=== PATIENT | female | born 1980 | race Caucasian/White ===

== ENCOUNTER 2024-04-11 16:43 | Observation (INO) ==
--- NOTE | 2024-04-11 16:49 | Emergency Department Note ---
History of Present Illness General Chief complaint: Abdominal Pain Stated complaint: ?BOWEL OBSTRUCTION,ABD PAIN,NAUSEA,CONSTIPATION Time Seen by Provider: 04/11/24 16:48 History of Present Illness NAME: JERONIMO CUMMINGS AGE: 44 SEX: F : 1980 ARRIVES VIA: Walk-In INFORMANT: Patient ED PROVIDER(S): SEGUN Sanches, Ashley Aguilera MD The patient is a pleasant 44-year-old female who arrives to the emergency department for evaluation of right lower quadrant abdominal pain. She reports she went to [facility] earlier today because she was concerned for a UTI, however when she was evaluated the provider had concerns for appendicitis or possible bowel obstruction. She reports the pain began last night, and since then has worsened. She states the pain is severe when she is in the vehicle and goes over any type of a bump. She denies any fever, nausea, vomiting, urinary or bowel issues. Home Medications Medication Instructions Recorded Confirmed Type Lactobacillus rhamnosus GG 10 1 cap PO DAILY 04/11/24 04/11/24 History billion cell capsule (Culturelle) acetaminophen 500 mg tablet 1,000 mg PO Q6H PRN Pain 04/11/24 04/11/24 History (Tylenol Extra Strength) buspirone 5 mg tablet 5 mg PO BID 04/11/24 04/11/24 History buspirone 5 mg tablet 5 mg PO DAILY PRN Anxiety 04/11/24 04/11/24 History cetirizine 10 mg tablet (Zyrtec) 10 mg PO DAILY 04/11/24 04/11/24 History levothyroxine 50 mcg tablet 50 mcg PO DAILY 04/11/24 04/11/24 History lorazepam 0.5 mg tablet 0.5 mg PO DAILY PRN Anxiety 04/11/24 04/11/24 History multivitamin 1 tab PO DAILY 04/11/24 04/11/24 History Allergies Allergy/AdvReac Type Severity Reaction Status Date / Time acyclovir [From Zovirax] Allergy Rash Verified 04/11/24 19:23 Past Med/Surg History Medical History No pertinent past medical history Surgical History No pertinent past surgical history Social History Smoking Status: Never smoker Preferred Language: Luxembourgish Feels Safe at Home: Yes Physical Exam Vital Signs Vital Signs - 24 hr 04/11/24 16:44 04/11/24 16:44 04/11/24 17:04 Temperature 36.6 C Temperature Source Temporal Artery Scan Pulse Rate 82 79 Pulse Rate [Apical] Respiratory Rate 18 18 Blood Pressure 163/70 H Blood Pressure [Right Arm] Blood Pressure Mean 101 Blood Pressure Mean [Right Arm] Pulse Oximetry 98 Oxygen Delivery Method Sepsis Recent Fever Within 48 Hours No Sepsis New/Unexplained Change in Mental Status N/A Sepsis Action Taken by Nursing No Action Required 04/11/24 17:16 04/11/24 19:06 Temperature Temperature Source Pulse Rate Pulse Rate [Apical] 72 Respiratory Rate 19 Blood Pressure Blood Pressure [Right Arm] 159/82 H Blood Pressure Mean Blood Pressure Mean [Right Arm] 107 Pulse Oximetry 100 95 Oxygen Delivery Method Room Air Sepsis Recent Fever Within 48 Hours Sepsis New/Unexplained Change in Mental Status Sepsis Action Taken by Nursing VITALS: Vitals are noted on the nurse's note and reviewed by myself. Vital signs stable. GENERAL: 44-year-old female, in no acute distress, nondiaphoretic, well- developed well-nourished. SKIN: The skin was without rashes, erythema, edema, or bruising. HEAD: Normocephalic atraumatic. HEART: Regular rate and rhythm without murmurs gallops or rubs. LUNGS: Clear to auscultation bilaterally without wheezes, rales or rhonchi. No retractions or accessory muscle use. ABDOMEN: Positive bowel sounds x 4. Soft, tender to palpation left lower quadrant, and right lower quadrant. De Souza sign positive. No guarding, slight rebound tenderness. MUSCULOSKELETAL: No muscle atrophy, erythema, or edema noted. Normal gait. Strength 5/5 throughout. NEURO: Patient was alert and oriented to person place and time. No focal neurological deficits. Course Administered Medications Discontinued Medications Sodium Chloride (Nss) 1,000 mls @ 999 mls/hr IV .Q1H1M STA Stop: 04/11/24 18:01 Last Infusion: 04/11/24 19:04 Dose: Infused Documented By: Admin: 04/11/24 17:25 Dose: 999 mls/hr Documented By: JUAN CARLOS Cefoxitin Sodium (Mefoxin) 2,000 mg in 60 mls @ 100 mls/hr IV NOW STA Stop: 04/11/24 19:25 Last Admin: 04/11/24 19:07 Dose: 100 mls/hr Documented By: KATHY Ioversol (Optiray 320 100ml) 94 ml IV ONCE ONE Stop: 04/11/24 18:17 Last Admin: 04/11/24 18:17 Dose: 94 ml Documented By: FREDRICK Ketorolac Tromethamine (Ketorolac Tromethamine 15 Mg/Ml Vial) 10 mg IV NOW STA Stop: 04/11/24 17:02 Last Admin: 04/11/24 17:24 Dose: 10 mg Documented By: JUAN CARLOS Morphine Sulfate (Morphine Sulfate 4 Mg/Ml 1 Ml Carp\Vial) 4 mg IV NOW STA Stop: 04/11/24 17:02 Last Admin: 04/11/24 17:24 Dose: Not Given Documented By: JUAN CARLOS Ondansetron HCl (Ondansetron Inj 2 Mg/Ml 2 Ml Vial) 4 mg IV NOW STA Stop: 04/11/24 17:02 Last Admin: 04/11/24 17:23 Dose: 4 mg Documented By: JUAN CARLOS Medical Decision Making Differential Diagnosis Appendicitis, ovarian cyst, ovarian torsion, ectopic , TOA, PID, infections, diverticulitis, UTI, obstruction, mesenteric ischemia, aortic pathology, inflammatory bowel disease, renal colic, PUD, pancreatitis, biliary pathology, hernia, volvulus, constipation, as well as other pathologies. Medical Records Attestation: I reviewed the patient's medical records. Home Medications Current Medication List: was personally reviewed by me Laboratory Data Attestation: I reviewed the patient's lab results. Leukocytosis 16.86, stable hemoglobin and hematocrit, no electrolyte abnormalities, urinalysis negative for infection. 04/11/24 17:14 04/11/24 17:14 Lab Results 04/11/24 04/11/24 Range/Units 17:14 Unknown WBC 16.86 H (4.8-10.8) K/ul RBC 4.74 (4.20-5.40) M/uL Hgb 14.5 (12.0-16.0) g/dl Hct 42.9 (37.0-47.0) % MCV 90.5 (80.0-100.0) fL MCH 30.6 (25.0-34.0) pg MCHC 33.8 (32.0-36.0) g/dL RDW Std Deviation 41.5 (36.4-46.3) fL RDW Coeff of Dina 12.4 (11.5-14.5) % Plt Count 363 (130-400) K/uL MPV 9.1 L (9.4-12.4) fL Immature Gran % (Auto) 0.4 % Neut % (Auto) 75.4 % Lymph % (Auto) 16.5 % Garrard % (Auto) 6.9 % Eos % (Auto) 0.4 % Baso % (Auto) 0.4 % Neut # (Auto) 12.70 H (1.40-6.50) K/uL Lymph # (Auto) 2.79 (1.20-3.40) K/uL [place]ard # (Auto) 1.17 H (0.11-0.59) K/uL Eos # (Auto) 0.06 (0.00-0.50) K/uL Baso # (Auto) 0.07 (0.00-0.20) K/uL Immature Gran # (Auto) 0.07 (0.01-0.20) K/uL Sodium 138 (136-145) mmol/L Potassium 3.5 (3.5-5.1) mmol/L Chloride 102 (98-107) mmol/L Carbon Dioxide 27 (21-32) mmol/L Anion Gap 9 (3-11) BUN 8 (6-23) mg/dl Creatinine 0.68 (0.6-1.2) mg/dl Est Cr Clr Drug Dosing 104.5 ml/min Est GFR ( Amer) 123.3 ml/min Est GFR (Non-Af Amer) 106.4 ml/min BUN/Creatinine Ratio 11.8 (10-20) Glucose 97 (70-99(Fasting)) mg/dl Lactate 1.1 (0.4-2.0) mmol/L Calcium 9.8 (8.6-10.3) mg/dl Total Bilirubin 1.0 (0.2-1.0) mg/dl AST 13 (13-39) U/L ALT 12 (7-52) U/L Alkaline Phosphatase 55 (34-104) U/L Total Protein 8.3 (6.0-8.3) gm/dl Albumin 4.9 (3.4-5.0) gm/dl Globulin 3.4 (2.5-4.0) gm/dl Albumin/Globulin Ratio 1.4 (0.9-2) Lipase 32 (11-82) U/L HCG, Qual Negative (Negative) Urine Color Yellow Urine Appearance Clear (Clear) Urine pH 6.5 (4.5-7.5) Ur Specific [place] 1.014 (1.000-1.030) Urine Protein Negative (Negative) Urine Glucose (UA) Negative (Negative) Urine Ketones Trace H (Negative) Urine Blood Negative (Negative) Urine Nitrite Negative (Negative) Urine Bilirubin Negative (Negative) Urine Urobilinogen Negative (Negative) Ur Leukocyte Esterase Negative (Negative) Imaging Data Radiologist's Impression: Abdomen/Pelvis CT 04/11/24 17:01 CT abd pelvis IV con only CLINICAL HISTORY: RLQ TTP TECHNIQUE: Helical axial images of the abdomen and pelvis were obtained and displayed. Automated dose lowering techniques and/or adjustment according to patient size were utilized for this exam. This exam was performed with intravenous contrast. CT DOSE: 1261.44 mGy.cm COMPARISON: None available at the time of this dictation. FINDINGS: Lower chest: No acute abnormality. Liver: Unremarkable. No focal lesions are seen. Gallbladder and biliary tree: No calcified gallstones. Normal caliber wall. No intra- or extrahepatic biliary ductal dilation. Pancreas: Unremarkable, no focal lesions. Spleen: Unremarkable. Adrenals: Unremarkable. Kidneys and ureters: Unremarkable. Bladder: Unremarkable. Reproductive organs: Uterus is not seen. There is a right ovary. Bowel: The appendix is dilated measuring 9 mm in diameter. No appendicolith is seen. Soft tissue stranding is seen about the appendix. Lymph nodes Retroperitoneal: Unremarkable. Pelvic: Unremarkable. Mesenteric: Unremarkable. Peritoneum: Fat stranding is seen in the right lower quadrant about the appendix. No fluid collection or intraperitoneal gas. Vessels: Unremarkable. Abdominal wall: A fat-containing umbilical hernia is seen. Bones: Unremarkable. IMPRESSION: Findings are compatible with acute appendicitis without abscess or perforation. ACT 112: Negative or not required by law. Electronically signed by: Roberto Gillis M.D. 04/11/2024 6:36 PM Blood Pressure Blood Pressure Findings: Elevated blood pressure Blood Pressure Disposition: elevated BP felt to be situational MDM Narrative The patient is a 44-year-old female who arrives to the emergency department for the above-stated complaint. Upon examination the patient does have significant tenderness to palpation of the lower abdomen. I do believe she is at risk for an acute appendicitis. Saline lock was placed, CBC, CMP, lipase, urinalysis were obtained. CBC shows a leukocytosis at 16.86, CMP was reassuring, lipase was negative. Urinalysis was negative for infection. CT imaging of the abdomen and pelvis with IV contrast was obtained which showed findings consistent with an acute appendicitis, without perforation. An order for IV Mefoxin was placed. I spoke with Dr. Cunningham from general surgery, he will admit the patient for an appendectomy this evening. Her last intake of food was at 1 PM today. Please refer to Dr. Cunningham's documentation for further patient care. Impression & Plan Acute appendicitis Discharge Plan Visit Data Chief Complaint: Abdominal Pain Stated Complaint: ?BOWEL OBSTRUCTION,ABD PAIN,NAUSEA,CONSTIPATION ED Provider: Ashley Aguilera ED Midlevel Provider: Georgette Cummings Discharge Problem: Acute appendicitis Patient Disposition: Admitted As Inpatient Discharge Instructions Interventions: ED Discharge Assessment Last Done: 04/11/24 20:05 Discharge Problem: Acute appendicitis Qualifiers: Acute appendicitis type: other Qualified Code(s): K35.890 - Other acute appendicitis without perforation or gangrene
--- OUTSIDE RECORDS SUMMARY | 2024-04-11 16:50 | External Medical Summary | Summary of Care ---
Author Name Unknown Organization [facility] Address [address] [facility] [place] [address] Phone [phone] Care Team Providers Care Elevator Operator Name Role Phone Beka Martinez DO Primary Care Provider Reason for Referral * Evaluate & Treat - Unlimited Visits (Within 10 days (routine)) - Pending Review Specialty Diagnoses / Procedures Referred By Rebecca arndt Referred To Contact EXCELLENCE COACH - Urogynecology / Gynecology Urology Diagnoses Mixed incontinence History of bladder surgery Cystocele, midline Lynnette Bacon PA-C [address] [place] [address] Referral ID Status Reason Start Date Expiration Date Visits Requested Visits Authorized [id number] Pending Review Specialty Services Required 03/25/[phone] Question Answer Referral Priority Within 10 days (routine) Where should this appointment be scheduled? [facility] What condition is the patient being referred for? Prolapse (dropped bladder, uterus, etc) Comments History of bladder surgery x 2, continued incontience Reason for Visit * Reason Comments PAP Encounter Details Date Type Department Care Team (Latest Contact Info) Description 03/25/2024 3:00 PM EDT Office Visit Gynecology/Obstetric s [facility] [address] [place] [address] Lynnette Bacon PA-C [address] [place] [address] Encounter for gynecological examination without abnormal finding*; Encounter for screening mammogram for malignant neoplasm of breast; Mixed incontinence; History of bladder surgery; Cystocele, midline Allergies Active Allergy Reactions Criticality Noted Date Comments Acyclovir Rash Low 04/01/2015 documented as of this encounter (statuses as of 03/25/2024) Medications Medication Sig Dispensed Refills Start Date End Date Status Multiple Vitamins-Minerals (ONE-A-DAY VITACRAVES ADULT) CHEW Take by mouth. 0 Active Cetirizine HCl 10 MG Oral Tablet Take 1 Tablet by mouth in the morning. 0 Active Culturelle Adult Ult Balance Oral Capsule Take by mouth . 0 Active Proventil HFA 108 (90 Base) MCG/ACT Inhalation Aerosol Solution Inhale by mouth 2 Puffs 4 times a day . 1 g 0 08/29/2022 Active Fluticasone Propionate 50 MCG/ACT Nasal Suspension (Flonase Allergy Relief) Administer 1-2 Sprays into nostril daily. 0 Active Levothyroxine Sodium 50 MCG Oral Tablet (Levoxyl) Take 1 Tablet by mouth in the morning. (at least 30 min prior to breakfast or other meds). 30 Tablet 11 04/05/2023 Active LORazepam 0.5 MG Oral Tablet (Ativan) Take 1 Tablet by mouth daily as needed for Anxiety. 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 Overweight (BMI 25.0-29.9) 01/06/2018 Grief reaction 01/06/2018 documented as of this encounter (statuses as of 03/25/2024) Immunizations Name Administration Dates Next Due COVID-19 mRNA, LNP-s, No Pre serve, 2-Dose Series (Moderna) 03/23/2021,02/16/2021 PPD 07/27/2019 Seasonal Influenza, PF, 6 M & above, IM , (FluLaval or Fluzone) 01/21/2021(Deferred: Patient Refused),09/10/2019 Seasonal Influenza, Split, I IV3, With Preserve, Inj 09/28/2011 TDAP (age 10 and older)(Boostrix) 09/10/2019 documented as of this encounter Social History Tobacco Use Types Packs/Day Years Used Date Smoking Tobacco: Former Cigarettes 0.3 6 Smokeless Tobacco: Never Alcohol Use Standard Drinks/Week Comments Yes 0 (1 standard drink = 0.6 oz pur e alcohol) socially- rare- 4/month max PHQ-2 Answer Date Recorded PHQ Adult Total Score 0 01/29/2023 Hunger Vital Sign Answer Date Recorded Within the past 12 months, y ou worried that your food would run out before you got the money to buy more. Never true 01/26/20 23 Within the past 12 months, t he food you bought just didn't last and you didn't have money to get more. Never true 01/26/2023 Sex and Gender Information Value Date Recorded Sex Assigned at Female 01/26/2023 7:42 PM EST Gender Identity Female 01/26/2023 7:42 PM EST Sexual Orientation Straight 01/26/2023 7: 42 PM EST Job Start Date Occupation Industry Not on file Not on file Not on file documented as of this encounter Last Filed Vital Signs Vital Sign Reading Time Taken Comments Blood Pressure 118/78 03/25/2024 2:48 PM EDT Pulse - - Temperature - - Respiratory Rate - - Oxygen Saturation - - Inhaled Oxygen Concentration - - Weight 78.9 kg (174 lb) 03/25/2024 2:48 PM EDT Height 162.6 cm (5' 4") 03/25/2024 2:48 PM EDT Body Mass Index 29.87 03/25/2024 2:48 PM EDT documented in this encounter Progress Notes * Lynnette Bacon PA-C - 03/25/2024 3:34 PM EDT CC: Annual exam HPI: The patient is a 44 year old female here for her annual exam. New patient. Patient had hysterectomy. 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 Found on diagnostic lap she had in teens. She has had several diagnostic lap surgeries and D&C. Diagnosed with endometriosis around that time. Had two with delivery and two ectopic pregnancies. Her two ectopic pregnancies occurred after her deliveries. Because of this and increased risk of additional ectopic pregnancies as well as endometriosis it was advised she have hysterectomy. Single ovary not taken at time of hysterectomy to her knowledge. Patient reports about 8-9 years after hysterectomy started to develop prolapse/incontinence issues.Had surgery to "tack bladder" with Dr. Sears in [place] at time. Did well after surgery from some timebut symptoms worsened. Had additional surgery with Dr. Sears about 2-3 years ago. Unsure exact surgery. Was told had interior and anterior repair. Pt reports symptoms unfortunately did not improve after surgery and was foundto still have bladder prolapse at post op check. Since then she has been having ongoing incontinence issues. Reports wears pad daily d/t leakage. Some days worse than others. Reports symptoms worse with coughing, laughing, sneezing. Has urinary urgency at times as well. Had incident a few weeks ago while outside next to car when she bent over and leaked urine onto driveway. Denies dysuria. Pt states has also had some bladder studies in the past. Has sensation of bulge particularly after intercourse. This can last up to a few days. She had attempted to get records ahead of today's appointment, but unfortunately we do not have them. Sexually active: yes New partner: no Her control method: s/p hysterectomy She denies any vaginal discharge, urinary symptoms or changes in GI habits. She has been doing her BSE occasionally. Denies breast concerns. Mammogram: 03/2024 BIRADS-1 No history of abnormal pap smear. Last pap smear 2017 normal (vaginal pap). Colon cancer screening: Colonoscopy done in last few years. Pt states had IBS, was told 5 year repeat. It has not been 5 years as of yet. Medications: Current Outpatient Medications Medication Sig Dispense Refill Multiple Vitamins-Minerals (ONE-A-DAY VITACRAVES ADULT) CHEW Take by mouth. Cetirizine HCl 10 MG Oral Tablet Take 1 Tablet by mouth in the morning. Culturelle Adult Ult Balance Oral Capsule Take by mouth . Levothyroxine Sodium 50 MCG Oral Tablet (Levoxyl) Take 1 Tablet by mouth in the morning. (at least 30 min prior to breakfast or other meds). 30 Tablet 11 busPIRone HCl 5 MG Oral Tablet (Buspar) TAKE 1 TABLET BY MOUTH TWICE DAILY, may take an additional tablet if needed for acute anxiety mid-day 180 Tablet 1 Proventil HFA 108 (90 Base) MCG/ACT Inhalation Aerosol Solution Inhale by mouth 2 Puffs 4 times a day . 1 g 0 Fluticasone Propionate 50 MCG/ACT Nasal Suspension (Flonase Allergy Relief) Administer 1-2 Sprays into nostril daily. LORazepam 0.5 MG Oral Tablet (Ativan) Take 1 Tablet by mouth daily as needed for Anxiety. 30 Tablet0 No current facility-administered medications for this visit. 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 DENTAL SURGERY PROCEDURE NEC LAPAROSCOPY,EXPLOR COMMON DUCT for endometriosis PARTIAL HYSTERECTOMY 2010 still has L ovary, was not born with right REMOVAL OF TONSILS, AGE 12+ N/A 10/28/2018 TONSILLECTOMY PRIMARY OR SECONDARY AGE 12 OR OVER performed by Mateusz Vega, at OR [facility] REPAIR BLADDER DEFECT Family History Problem Relation Age of Onset No Known Problems Mother Diabetes Father Type 1 No Known Problems Sister Heart Disorder Grandmother (Maternal) pacemaker Lung cancer Grandmother (Paternal) No Known Problems Son No Known Problems Daughter Review of Systems: Constitutional ROS: No change in weight, No weakness, No fatigue, and No fevers, sweats, or chills Pulmonary ROS: No cough, No shortness of breath Cardiovascular ROS: No chest pain, No edema, No palpitations, and No syncope Gastrointestinal ROS: No abdominal pain, No change in bowel habits Breast ROS: No new breast lumps or masses, No severe breast pain, No nipple discharge, and No recent change in shape/color Genito-Urinary Female ROS: See HPI. No STDs, No dysuria, No irregular menstruation, , and No vaginal discharge Psychiatric ROS: No depression and No anxiety OBJECTIVE: BP 118/78 | Ht 1.626 m (5' 4") | Wt 78.9 kg (174 lb) | BMI 29.87 kg/m | BSA 1.89 m General: awake, alert, and oriented x 3, normal affect, no acute distress Skin: color, texture normal Head: normocephalic, atraumatic Neck: supple, thyroid normal size, non-tender Cardiac: regular rate and rhythm Lungs: clear to auscultation Abdomen: soft, non-tender, non-distended Extremities: no edema Neuro: no focal motor/sensory deficits Breasts: no skin changes, no nipple retraction or dimpling, no nipple discharge or bleeding, no axillary or supraclavicular lymphadenopathy, normal to palpation without dominant masses External Genitalia/Vulva: anatomy is normal, no significant redness of labia, no discharge on vulvar tissues, ulcers are absent, no condylomatous lesions Vagina: vaginal tissues are not inflamed, normal color and texture, no significant discharge present, cystocele grade 1 with valsalva Cervix: no seen likely secondary to surgical history Uterus: surgically absent Adnexa: non-tender bilaterally, no palpable pelvic masses Shipping/Receiving Clerk Documentation Provider requested tester electronic scale. Name of tester electronic scale: MARION Yuan ASSESSMENT/PLAN: Encounter for gynecological examination without abnormal finding (Primary) Encounter for screening mammogram for malignant neoplasm of breast - MAMMOGRAM SCREENING LEI BILATERAL; Future; Expected date: 03/02/2025 Mixed incontinence - UROGYNECOLOGY CLINIC REFERRAL OP (FEMALE ONLY) - URINALYSIS, REFLEX TO CULTURE (NOT FOR NEUTROPENIC PATIENTS); Future; Expected date: 03/25/2024 History of bladder surgery - UROGYNECOLOGY CLINIC REFERRAL OP (FEMALE ONLY) Cystocele, midline - UROGYNECOLOGY CLINIC REFERRAL OP (FEMALE ONLY) Counseled on self breast awareness. Notify office right away if any concerns. Recommended mammogram annually unless indicated sooner. Mammogram next year. It was recommended she sign release of records for hysterectomy and bladder surgeries for further review. Patent agreeable. Recommend she touch base with office ahead of urogyn appointment to ensure received. RTO in 1 year for annual exam appointment or sooner if she has any concerns. Lynnette Bacon PA-C PCP: BEKA MARTINEZ [address] [place], [place] [address] [phone] documented in this encounter Nursing Notes * Lissy Reid LPN - 03/25/2024 2:56 PM EDT Patient identified Danii Hoang by name and date of . Patient here for yearly exam. Complaints: referral to urogyn Last pap: [id number] Last Mammogram: 2023 Last Dexa: na Last Colonoscopy: na Type of Contraception: hysterectomy Pt here for chlamydia screen. no My [facility] is a way you can talk to your provider online through e-mail. May I activate it for you? ALREADY ACTIVE Do you need any refills while you are here? no Lissy Rouse LPN 03/25/2024 2:57 PM documented in this encounter Plan of Treatment Upcoming Encounters Date Type Department Care Team (Late st Contact Info) Description 06/11/2024 3:35 PM EDT Office Visit Urogynecology Therese Rodarte [address] [place] [address] Lavon Moreland MD [address] [place] [address] Nurse Arian Rodarte [address] [place] [address] 06/23/2024 2:20 PM EDT Office Visit [address] [place] [id number] Daysi Landeros PA-C [address] [place] [address] [place] [address] 12/21/2024 2:00 PM EST Office Visit Family Practice [facility] [place] [address] [place] [address] Felipetoño Beka Vaughn, [address] [facility] [place] [address] 04/19/2025 5:15 PM EDT Office Visit Gynecology/Obstetrics [facility] [address] [place] [address] Lynnette Bacon PA-C [address] [place] [address] Scheduled Orders Name Type Priority Associated Diagnoses Orde r Schedule MAMMOGRAM SCREENING LEI BILATERAL Medical Imaging Routine Encounter for screening mammogram for malignant neoplasm of breast Expected: 03/02/2025 (Approximate), Expires: 04/24/2025 URINALYSIS, REFLEX TO CULTURE (NOT FOR NEUTROPENIC PATIENTS) Lab Routine Mixed incontinence Expected: 03/25/2024, Expires: 03/25/2025 Scheduled Referrals Name Type Priority Associated Diagnoses Order Schedule UROGYNECOLOGY CLINIC REFERRAL OP (FEMALE ONLY) Referral Within 10 days (routine) Mixed incontinence History of bladder surgery Cystocele, midline Ordered: 03/25/2024 Health Maintenance Due Date Last Done Comments Hepatitis B (1 of 3 - 19+ 3-dose series) 1999 COVID-19 Vaccine (2022- season) 2023 03/23/2021, 02/16/2021 Depression Screening 01/29/2024 01/29/2023 Influenza Vaccine (FLU shot) (Season Ended) 2024 09/10/2019, 09/28/2011 HbA1c 12/23/2024 12/23/2023, 01/30/2023 TSH 12/23/2024 12/23/2023, 0 01/2023, 01/30/2023, Additional history exists Mammogram 03/05/2025 03/05/2024, 01/2023, 08/30/2020 Lipid Panel 12/23/2028 12/23/2023, 030 12/2022, 01/13/2018 DTaP,Tdap,and Td Vaccines (2 - Td or Tdap) 09/10/2029 09/10/2019 Pap Smear Discontinued 12/13/2016 GARDASIL-HPV IMMUNIZATION SERIES Aged Out No longer eligible based on patient's age to complete this topic MENINGOCOCCAL (MENACTRA/MENVEO) Aged Out No longer eligible based on patient's age to complete this topic Pneumococcal Vaccine: Pediatrics (0 to 5 Years) and At-Risk Patients (6 to 64 Years) Aged Out No longer eligible based on patient's age to complete this topic documented as of this encounter Medical Devices Not on filedocumented as of this encounter Visit Diagnoses Diagnosis Encounter for gynecological examination without abnormal finding- Primary Routine gynecological examination Encounter for screening mammogram for malignant neoplasm of breast Other screening mammogram Mixed incontinence Mixed incontinence urge and stress (male)(female) History of bladder surgery Cystocele, midline documented in this encounter Care Teams Elevator Operator Relationship Specialty Start Date End Date Beka Martinez DO [address] [place] [address] PCP - General Family Medicine 09/10/19 documented as of this encounter
--- OUTSIDE RECORDS SUMMARY | 2024-04-11 16:50 | External Medical Summary | Summary of Care ---
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 0 Active Cetirizine HCl 10 MG Oral Tablet Take by mouth 10 mg in the morning. 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 Overweight (BMI 25.0-29.9) 01/06/2018 Grief reaction 01/06/2018 documented as of this encounter (statuses as of 12/23/2023) Immunizations Name Administration Dates Next Due COVID-19 [...] on file documented as of this encounter Plan of Treatment Upcoming Encounters Date Type Department Care Team (Late st Contact Info) Description 12/23/2023 2:30 PM EST Nutrition Services Nutrition, [facility] [address] [facility] [place] [address] Kristine Mcgarry, BRENDAN [address] [facility] [place] [address] 02/18/2024 3:00 PM EDT Imaging Radiology [facility] [address] [facility] [place] [address] 03/25/2024 3:00 PM EDT Office Visit Gynecology/Obstetrics [facility] [address] [facility] [place] [address] Lynnette Bacon PA-C [address] [facility] [place] [address] 06/23/2024 2:20 PM EDT Office Visit Dermatology[address] [address] Daysi Landeros PA-C [address] [place] [address] [place] [address] 12/21/2024 2:00 PM EST Office Visit Family Practice [facility] [place] [address] [facility] [place] [address] Chrissy Maritnez DO [address] [facility] [place] [address] Pending Results Name Type Priority Associated Diagnoses Date /Time LIPID PANEL WITH DIRECT LDL IF TG IS HIGH Lab Routine Screening for lipoid disorders 12/23/2023 8:00 AM EST HEMOGLOBIN A1C Lab Routine Prediabetes 12/23/2023 8:00 AM EST COMPREHENSIVE METABOLIC PANEL Lab Routine Prediabetes 12/23/2023 8:00 AM EST TSH WITH FREE T4 IF INDICATED Lab Routine 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 12/23/2023 8:00 AM EST PROTEIN/ CREATININE RATIO, URINE Lab Routine Prediabetes 12/23/2023 8:00 AM EST Health Maintenance Due Date Last Done Comments Hepatitis B (1 of 3 - 3-dose series) 1980 COVID-19 Vaccine (3 - 2022-2 4 season) 2023 03/23/2021, 02/16/2021 Influenza Vaccine (FLU shot) (#1) 2023 09/10/2019, 09/28/2011 Depression Screening 01/29/2024 01/29/2023 HbA1c 01/31/2024 01/30/2023 Mammogram 02/02/2024 02/01/2023, 08/30/2020 TSH 04/03/2024 04/03/2023, 01/30/2023, 01/13/2018 Lipid Panel 01/31/2028 01/30/2023, 01/13/2018 DTaP,Tdap,and Td Vaccines (2 - Td [...] as of this encounter Visit Diagnoses Diagnosis Screening for lipoid disorders Prediabetes Other abnormal glucose 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
--- OUTSIDE RECORDS SUMMARY | 2024-04-11 16:50 | External Medical Summary | Summary of Care ---
Author Name Unknown Organization [facility] Address [address] [facility] [address] Phone [phone] Care Team Providers Care Public Address Systems Mechanic Name Role Phone Chrissy Martinez DO Primary Care Provider Reason for Visit * Reason Onset Date Comments Medical Nutrition Therapy 01/07/2024 Encounter Details Date Type Department Care Team (Late st Contact Info) Description 01/07/2024 10:30 AM EST Scheduled Telephone Bert Graham [address] [place] [address] Kristine Mcgarry, NATALIO [address] [place] [address] Allergies Active Allergy Reactions Criticality Noted Date Comments Acyclovir Rash Low 04/01/2015 documented as of this encounter (statuses as of 01/07/2024) Medications Medication Sig Dispensed Refills Start Date [...] as of this encounter (statuses as of 01/07/2024) Active Problems Problem Noted Date Diagnosed Date Prediabetes 12/12/2023 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 Left message on pt's voice mail encouraging her to reschedule appointment. Kristine Mcgarry RDN, Clinical Dietitian II, [facility] Clinical Nutrition Services [facility] [phone] [place] [address] Available via [employer] Portal documented in this encounter Plan of Treatment Upcoming Encounters Date Type Department Care Team (Late st Contact Info) Description 02/18/2024 3:00 PM EDT Imaging Radiology [facility] [address] [facility] [place] [address] 03/25/2024 3:00 PM EDT Office Visit Gynecology/Obstetrics [facility] [address] [facility] [place] [address] Lynnette Bacon PA-C [address] [facility] [place] [address] 06/23/2024 2:20 PM EDT Office Visit Dermatology, [place] [address] [address] [facility] [address] Daysi Landeros PA-C [address] [place] [address] [place] [address] 12/21/2024 2:00 PM EST Office Visit [address] [place] [address] Chrissy Martinez DO [address] [place] [address] Health Maintenance Due Date Last Done Comments Hepatitis B (1 of 3 - 3-dose series) 1980 COVID-19 Vaccine (3 - 2022- season) 2023 03/23/2021, 02/16/2021 Influenza Vaccine (FLU shot) (#1) 2023 09/10/2019, 09/28/2011 Depression Screening 01/29/2024 01/29/2023 Mammogram 02/02/2024 02/01/2023, 08/30/2020 HbA1c 12/23/2024 12/23/2023, 01/30/2023 TSH 12/23/2024 12/23/2023, 05/0 01/2023, 01/30/2023, Additional history exists Lipid Panel 12/23/2028 12/23/2023, 03/0 12/2022, 01/13/2018 DTaP,Tdap,and Td Vaccines (2 - [...] Not on filedocumented as of this encounter Care Teams Public Address Systems Mechanic Relationship Specialty Start Date End Date Chrissy Martinez DO [address] [place] [address] PCP - General Family Medicine 09/10/19 documented as of this encounter
--- OUTSIDE RECORDS SUMMARY | 2024-04-11 16:50 | External Medical Summary | Summary of Care ---
Author Name Unknown Organization [facility] Address [address] [facility] [place] [address] Phone [phone] Care Team Providers Care Inventory Specialist Name Role Phone Beka Martinez DO Primary Care Provider Reason for Visit * Reason Comments eRx-Medication Refill Encounter Details Date Type Department Care Team (Late st Contact Info) Description 04/07/2024 Refill Family Practice [facility] 200 [facility] [place] [address] Beka Martinez DO 200 [facility] [place] [address] Allergies Active Allergy Reactions Criticality Noted Date Comments Acyclovir Rash Low 04/01/2015 documented as of this encounter (statuses as of 04/08/2024) Medications Medication Sig Dispensed Refills Start Date End Date Status Multiple Vitamins-Mineral s (ONE-A-DAY VITACRAVES ADULT) CHEW Take by mouth. [...] 1-2 Sprays into nostril daily. 0 Active LORazepam 0.5 MG Oral Tablet (Ativan) Take 1 Tablet by mouth daily as needed for Anxiety. 30 Tablet 0 05/07/2023 Active busPIRone HCl 5 MG Oral Tablet (Buspar)Indicati ons:MARISABEL (generalized anxiety disorder) TAKE 1 TABLET BY MOUTH TWICE DAILY, may take an additional tablet if needed for acute anxiety mid-day 180 Tablet 1 02/04/2024 Active Levothyroxine Sodium 50 MCG Oral Tablet (Levoxyl) TAKE 1 TABLET BY MOUTH EVERY MORNING. AT LEAST 30 MINTUES PRIOR TO BREAKFAST OR OTHER MEDICINES 90 Tablet 1 04/08/2024 Active Levothyroxine Sodium 50 MCG Oral Tablet (Levoxyl) Take 1 Tablet by mouth in the morning. (at least 30 min prior to breakfast or other meds). 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 AT LEAST 30 MINTUES PRIOR TO BREAKFAST OR OTHER MEDICINESAuthorizing Provider: BEKA MARTINEZ User: TRICIA CALLAHAN documented in this encounter Plan of Treatment Upcoming Encounters Date Type Department Care Team (Late st Contact Info) Description 06/11/2024 3:35 PM EDT Office Visit Urogynecology [facility] [address] [place] [address] Lavon Moreland MD [address] [place] [address] Nurse Arian Rodarte [address] [place] [address] 06/23/2024 2:20 PM EDT Office [address] [id number] Daysi Landeros, PAWillem [address] [place] [address] [place] [address] 12/21/2024 2:00 PM EST Office Visit Family Practice [facility] [place] 200 [facility] [place] [address] Beka Martinezly, 200 [facility] [place] [address] 04/19/2025 5:15 PM EDT Office Visit Gynecology/Obstetrics [facility] [address] [place] [address] Lynnette Bacon PA-C [address] [place] [address] Health Maintenance Due Date Last Done Comments Hepatitis B (1 of 3 - 19+ 3-dose series) 1999 COVID-19 Vaccine (2022- season) 2023 03/23/2021, 02/16/2021 Depression Screening 01/29/2024 01/29/2023 Influenza Vaccine (FLU shot) (Season Ended) 2024 09/10/2019, 09/28/2011 HbA1c 12/23/2024 12/23/2023, 01/30/2023 TSH 12/23/2024 12/23/2023, 05/0 01/2023, 01/30/2023, Additional history exists Mammogram 03/05/2025 03/05/2024, 03/0 01/2023, 08/30/2020 Lipid Panel 12/23/2028 12/23/2023, 03/0 12/2022, 01/13/2018 [...] filedocumented as of this encounter Care Teams Inventory Specialist Relationship Specialty Start Date End Date Beka Martinez DO [address] [place] [address] PCP - General Family Medicine 09/10/19 documented as of this encounter
--- OUTSIDE RECORDS SUMMARY | 2024-04-11 16:50 | External Medical Summary | Summary of Care ---
Author Name Unknown Organization [facility] Address [address] [facility] [address] Phone [phone] Care Team Providers Care Credit Administration Specialist Name Role Phone Chrissy Martinez DO Primary Care Provider Encounter Details Date Type Department Care Team (Late st Contact Info) Description 03/31/2024 Orders Only PATIENT PORTAL DO NOT DELETE THIS DEPT USED BY [place] [id number] Allergies Active Allergy Reactions Criticality Noted Date Comments Acyclovir Rash Low 04/01/2015 documented as of this encounter (statuses as of 03/31/2024) Medications Medication Sig Dispensed Refills Start Date [...] as of this encounter (statuses as of 03/31/2024) Active Problems Problem Noted Date Diagnosed Date Endometriosis 03/25/2024 Prediabetes 12/12/2023 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 Overweight (BMI 25.0-29.9) 01/06/2018 Grief reaction 01/06/2018 documented as of this encounter (statuses as of 03/31/2024) Immunizations Name Administration Dates Next Due COVID-19 [...] 3:35 PM EDT Office Visit Urogynecology Therese Rdoarte [address] [place] [address] Lavon Moreland MD [address] [place] [address] Nurse Cayden Urosebastian Bert [address] [place] [address] 06/23/2024 2:20 PM EDT Office Visit Dermatology[address] [place] [address] Daysi Landeros PA-C [address] [place] [address] [place] [address] 12/21/2024 2:00 PM EST Office Visit Family Practice [facility] [address] [facility] [place] [address] Chrissy Martinez, 200 [facility] [place] [address] 04/19/2025 5:15 PM EDT Office Visit Gynecology/Obstetrics Therese Rodarte [address] [place] [address] Lynnette Bacon PA-C [address] [place] [address] Health Maintenance Due Date Last Done Comments Hepatitis B (1 of 3 - 19+ 3-dose series) 1999 COVID-19 Vaccine (2022- season) 2023 03/23/2021, 02/16/2021 Depression Screening 01/29/2024 01/29/2023 Influenza Vaccine (FLU shot) (Season Ended) 2024 09/10/2019, 09/28/2011 HbA1c 12/23/2024 12/23/2023, 01/30/2023 TSH 12/23/2024 12/23/2023, 05/0 01/2023, 01/30/2023, Additional history exists Mammogram 03/05/2025 03/05/2024, 0 01/2023, 08/30/2020 Lipid Panel 12/23/2028 12/23/2023, 030 [...] filedocumented as of this encounter Care Teams Credit Administration Specialist Relationship Specialty Start Date End Date Chrsisy Martinez DO [address] [place] [address] PCP - General Family Medicine 09/10/19 documented as of this encounter
--- OUTSIDE RECORDS SUMMARY | 2024-04-11 16:50 | External Medical Summary | Summary of Care ---
Author Name Unknown Organization [facility] Address [address] [place] [facility] [place] [address] Phone [phone] Care Team Providers Care Basic Acoustic Analyst Name Role Phone Chrissy Martinez DO Primary Care Provider Reason for Visit * Reason Onset Date Comments Medication Refill 02/03/2024 Encounter Details Date Type Department Care Team (Late st Contact Info) Description 02/03/2024 Refill [facility] [address] [facility] [place] [address] Chrissy Martinez DO 200 [facility] [place] [address] [place] (generalized anxiety disorder) Allergies Active Allergy Reactions Criticality Noted Date Comments Acyclovir Rash Low 04/01/2015 documented as of this encounter (statuses as of 02/04/2024) Medications Medication Sig Dispensed Refills Start Date [...] anxiety mid-day 180 Tablet 1 02/04/2024 Active busPIRone HCl 5 MG Oral Tablet (Buspar)Indicati ons:MARISABEL (generalized anxiety disorder) TAKE 1 TABLET BY MOUTH TWICE DAILY, may take an additional tablet if needed for acute anxiety mid-day 90 Tablet 0 10/31/2023 02/03/2024 Discontinue d(Refill) documented as of this encounter (statuses as of 02/04/2024) Active Problems Problem Noted Date Diagnosed Date Prediabetes 12/12/2023 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 Overweight (BMI 25.0-29.9) 01/06/2018 Grief reaction 01/06/2018 documented as of this encounter (statuses as of 02/04/2024) Immunizations Name Administration Dates Next Due COVID-19 [...] encounter Miscellaneous Notes * Telephone Encounter - Shirin Thakur MD - 02/04/2024 12:32 PM ESTSigned Prescriptions: Disp Refills busPIRone HCl 5 MG Oral Tablet (Buspar) 180 Ta*1 Sig: TAKE 1 TABLET BY MOUTH TWICE DAILY, may take an additional tablet if needed for acute anxiety mid-day Authorizing Provider: SHIIRN THAKUR * Telephone Encounter - Nicky Peters [facility] - 02/04/2024 11:18 AM EST Pending Prescriptions: Disp Refills busPIRone HCl 5 MG Oral Tablet (Buspar) 180 Ta*1 Sig: TAKE 1 TABLET BY MOUTH TWICE DAILY, may take an additional tablet if needed for acute anxiety mid-day * Telephone Encounter - Nicky Peters [facility] - 02/04/2024 11:15 AM EST [facility] is currently not authorized to approve refills for the pended medication(s) per refill protocol. Please approve if appropriate. Thanks, Nicky Peters [facility] Clinical Pharmacist [facility] ([facility]) (Formerly Telepharmacy) [phone] documented in this encounter Plan of Treatment Upcoming Encounters Date Type Department Care Team (Late st Contact Info) Description 02/18/2024 3:00 PM EDT [facility] [place] [address] 03/25/2024 3:00 PM EDT Office Visit Gynecology[facility]Obstetrics [facility] [place] [address] Lynnette Bacon PA-C [address] [place] [address] 06/23/2024 2:20 PM EDT Office Visit [address] [place] [address] Daysi Landeros PA-C [address] [place] [address] [place] [address] 12/21/2024 2:00 PM EST Office Visit Family Practice [facility] 200 [facility] [place] [address] Chrissy Martinez, 200 [facility] [place] [address] Health Maintenance Due Date Last Done Comments Hepatitis B (1 of 3 - 19+ 3-dose series) 1999 COVID-19 Vaccine ( - 2022-24 season) 2023 03/23/2021, 02/16/2021 Influenza Vaccine (FLU [...] as of this encounter Visit Diagnoses Diagnosis MARIS[place]EL (generalized anxiety disorder) Generalized anxiety disorder documented in this encounter Care Teams Basic Acoustic Analyst Relationship Specialty Start Date End Date Chrissy Martinez DO [address] [place], [place] [address] PCP - General Family Medicine 09/10/19 documented as of this encounter
--- OUTSIDE RECORDS SUMMARY | 2024-04-11 16:50 | External Medical Summary ---
Author Name Unknown Address Unknown Organization [id number]:[facility] - [address] [place] [address] Laboratory Report Ordering Provider Test Date Status ASHELY IRELAND 12/23/2023 08:00:06 Final Observation Date Value Abnormality Reference (Units ) Status TSH 12/23/2023 08:00:06 3.07 0.27-4.20 (uIU/mL) Final Performing Location LABORATORY C - [address] [place] [address]
--- OUTSIDE RECORDS SUMMARY | 2024-04-11 16:50 | External Medical Summary | Summary of Care ---
Author Name Unknown Organization [facility] Address [address] [facility] [address] Phone [phone] Care Team Providers Care Senior Portfolio Analyst Name Role Phone Chrissy Martinez DO Primary Care Provider Encounter Details Date Type Department Care Team (Late st Contact Info) Description 03/31/2024 Telephone Gynecology/Obstetrics [facility] [address] [place] [address] Lynnette Bacon PA-C [address] [place] [address] Allergies Active Allergy Reactions Criticality Noted Date [...] encounter Miscellaneous Notes * Telephone Encounter - Emily Freeman MED ASSIST - 03/31/2024 11:30 AM EDT Faxed release to number given below * Telephone Encounter - Rosario Scanlon RN - 03/31/2024 10:[address] Lara office called. They received a record release but pt has not been seen there. Release states Dr. Sears. He is in a different practice and his fax number is [phone]. Will send to Emily to see if she has the release to be sent there. documented in this encounter Plan of Treatment Upcoming Encounters Date Type Department Care Team (Late st Contact Info) Description 06/11/2024 3:35 PM EDT Office Visit Urogynecology Therese Rodarte [address] [place] [address] Lavon Moreland MD [address] [place] [address] Nurse Arian Rodarte [address] [place] [address] 06/23/2024 2:20 PM EDT Office Visit [address] [place] [address] Daysi Landeros PA-C [address] [place] [address] [place] [address] 12/21/2024 2:00 PM EST Office Visit Family Practice [facility] [employer] 200 [facility] [place] [address] Chrissy Martinez DO [address] [facility] [place] [address] 04/19/2025 5:15 PM EDT Office Visit Gynecology/Obstetrics Therese Rodarte [address] [place] [address] Lynnette Bacon PA-C [address] [place] [address] Health Maintenance Due Date Last Done Comments [...] filedocumented as of this encounter Care Teams Senior Portfolio Analyst Relationship Specialty Start Date End Date Chrissy Martinez DO [address] [place] [address] PCP - General Family Medicine 09/10/19 documented as of this encounter
--- OUTSIDE RECORDS SUMMARY | 2024-04-11 16:50 | External Medical Summary ---
Author Name Unknown Address Unknown Organization [id number]:[facility] - [address] [place] [address] Laboratory Report Ordering Provider Test Date Status ASHELY IRELAND 12/23/2023 08:00:06 Final Normal: <150 mg/ g creatinine
High: 150-500 mg/g creatinine
Very High: >500 mg/g creatinine
Nephrotic: >3000 mg/g creatinine Observation Date Value Abnormality Reference (Units ) Status Protein/Creatinine [Ratio] in Urine 12/23/2023 08:00:06 61 <150 (mg/g ) Final Protein, Urine 12/23/2023 08:00:06 7 (mg/dL) Final Creatinine, Urine 12/23/2023 08:00:06 115 (mg/dL) Final Performing Location [facility] - [address] [place] [address]
--- OUTSIDE RECORDS SUMMARY | 2024-04-11 16:51 | External Medical Summary | Summary of Care ---
Author Name Unknown Organization [facility] Address [address] [place] [address] Phone [phone] Care Team Providers Care Box Attacher Name Role Phone Chrissy Martinez DO Primary Care Provider Reason for Visit * Reason Onset Date Comments Other 12/03/2023 Forms Encounter Details Date Type Department Care Team (Late st Contact Info) Description 12/03/2023 Telephone Family Practice [facility] 200 [facility] [place] [address] Chrissy Martinez DO 200 [place] [address] Other (Forms) Allergies Active Allergy Reactions Criticality Noted Date Comments Acyclovir Rash Low 04/01/2015 documented as of this encounter (statuses as of 12/03/2023) Medications Medication Sig Dispensed Refills Start Date [...] as of this encounter (statuses as of 12/03/2023) Active Problems Problem Noted Date Diagnosed Date Overweight (BMI 25.0-29.9) 01/06/2018 Grief reaction 01/06/2018 documented as of this encounter (statuses as of 12/03/2023) Immunizations Name Administration Dates Next Due COVID-19 [...] encounter Miscellaneous Notes * Telephone Encounter - Dann Patricio OSA - 12/03/2023 11:10 AM EST [place] dropped [place] [employer] - employability assessment paperwork to be completed. Placed in [facility]. Envelope attached to paperwork to send. documented in this encounter Plan of Treatment Upcoming Encounters Date Type Department Care Team (Late st Contact Info) Description 12/13/2023 2:30 PM EST Nutrition Services Nutrition, [facility] [address] [place] [address] Kristine Mcgarry RDN [address] [place] [address] 01/31/2024 2:40 PM EST Office Visit Family Practice [facility] [address] [facility] [place], [place] [address] Chrissy Martinez DO [address] [facility] [place], [place] [address] 03/25/2024 3:00 PM EDT Office Visit Gynecology/Obstetrics [facility] [address] [place] [address] Lynnette Bacon PA-C [address] [place] [address] 06/23/2024 2:20 PM EDT Office Visit Dermatology[address] [place] [address] Daysi Landeros PA-C [address] [place] [address] [place] [address] Health Maintenance Due Date Last Done Comments Hepatitis B (1 of 3 - 3-dose series) 1980 COVID-19 Vaccine (3 - 2022-24 season) 2023 03/23/2021, 02/16/2021 Influenza Vaccine (FLU shot) (#1) 2023 09/10/2019, 09/28/2011 Depression Screening 01/29/2024 01/29/2023 Mammogram 02/02/2024 02/01/2023, 08/30/2020 TSH 04/03/2024 04/03/2023, 03/0 12/2022, 01/13/2018 Diabetes Screening 01/30/2026 01/30/2023, 0 01/30/2023, 03/22/2020, Additional history exists Lipid Panel 01/31/2028 01/30/2023, 01/13/2018 DTaP,Tdap,and Td [...] filedocumented as of this encounter Care Teams Box Attacher Relationship Specialty Start Date End Date Chrissy Martinez DO [address] [place] [address] PCP - General Family Medicine 09/10/19 documented as of this encounter
--- OUTSIDE RECORDS SUMMARY | 2024-04-11 16:51 | External Medical Summary | Summary of Care ---
Author Name Unknown Organization [facility] Address [address] [place] [address] Phone [phone] Care Team Providers Care Yarn Spinner Name Role Phone Chrissy Martinez DO Primary Care Provider Reason for Visit * Reason Onset Date Comments Other 12/03/2023 Forms Encounter Details Date Type Department Care Team (Late st Contact Info) Description 12/03/2023 Telephone Family Practice [facility] 200 [facility] [place] [address] Chrissy Martinez DO 200 [place] [address] Other (Forms) Allergies Active Allergy Reactions Criticality Noted Date Comments Acyclovir Rash Low 04/01/2015 documented as of this encounter (statuses as of 12/04/2023) Medications Medication Sig Dispensed Refills Start Date [...] as of this encounter (statuses as of 12/04/2023) Active Problems Problem Noted Date Diagnosed Date Overweight (BMI 25.0-29.9) 01/06/2018 Grief reaction 01/06/2018 documented as of this encounter (statuses as of 12/04/2023) Immunizations Name Administration Dates Next Due COVID-19 [...] encounter Miscellaneous Notes * Telephone Encounter - Sylvia Monzon OSA - 12/04/2023 11:14 AM EST My g sent 12/04 * Telephone Encounter - Chelsea Aldana LPN - 12/03/2023 2:07 PM EST Last Office Visit: 01/29/2023 (Tyler) Last Office Visit: 12/20/2020 (Michelle) Please call patient to schedule office visit to complete these forms. Dr Martinez hasn't seen patientsince 12/2020. She has a appointment scheduled for 01/31/24, if forms can wait until then we'll do them at that timebut if she needs them earlier she will need a appointment earlier. * Telephone Encounter - Dann Patricio OSA - 12/03/2023 11:10 AM EST Pt dropped [place] [employer] - [place] paperwork to be completed. Placed in [facility]. Envelope attached to paperwork to send. documented in this encounter Plan of Treatment Upcoming Encounters Date Type Department Care Team (Late st Contact Info) Description 12/13/2023 2:30 PM EST Nutrition Services Nutrition, [facility] [address] [place] [address] Kristine Mcgarry RDN [address] [place] [address] 01/31/2024 2:40 PM EST Office Visit [facility] [address] [place] 200 [facility] [place] [address] Chrissy Martinez, DO [address] [place] [address] 03/25/2024 3:00 PM EDT Office Visit Gynecology/Obstetrics Therese Rodarte [address] [place] [address] Lynnette Bacon PA-C [address] [place] [address] 06/23/2024 2:20 PM EDT [facility] [address] [place] [address], [place] [address] Daysi Landeros PA-C [address] [place] [address] [place] [address] Health Maintenance Due Date Last Done Comments [...] filedocumented as of this encounter Care Teams Yarn Spinner Relationship Specialty Start Date End Date Chrissy Martinez DO [address] [place] [address] PCP - General Family Medicine 09/10/19 documented as of this encounter
--- OUTSIDE RECORDS SUMMARY | 2024-04-11 16:51 | External Medical Summary ---
Author Name Unknown Address Unknown Organization K01:[facility] - [address] [facility] [place] [address] Laboratory Report Ordering Provider Test Date Status CARLITA IRELANDITER 12/23/2023 08:00:06 Final Observation Date Value Abnormality Reference (Units ) Status Triglyceride 12/23/2023 08:00:06 93 <=174 ( mg/dL) Final Triglyceride Reference Range s (mg/dL):
<150 Acceptable
150-174 Borderline high
175-499 High
>=500 Very high Cholesterol 12/23/2023 08:00:06 177 <200 (mg /dL) Final Total Cholesterol Reference Ranges (mg/dL):
<200 Desirable
200-239 Borderline high
>=240 High HDL 12/23/2023 08:00:06 54 >49 (mg/dL ) Final HDL Cholesterol Reference Ra nges (mg/dL):
>=60 High (Desirable)
<50 Low (Undesirable) For Females
<40 Low (Undesirable) For Males NON-HDL CHOLESTEROL 12/23/2023 08:00:06 123 <=159 (mg/dL) Final Non-HDL Cholesterol Referenc e Range (mg/dL):
<100 Target level for high risk ASCVD patient
<130 Optimal for general population
130-159 Near optimal for general population
160-189 Borderline High
190-219 High
>=220 Very High LDL, (calculated) 12/23/2023 08:00:06 104 <= 129 (mg/dL) Final LDL Cholesterol Reference Ra nges (mg/dL):
<70 Target level for high risk ASCVD patient
<100 Optimal for general population
100-129 Near optimal for general population
130-159 Borderline high
160-189 High
>=190 Very high Performing Location LAB[facility]ATORY [facility] - [address] [place] [address]
--- OUTSIDE RECORDS SUMMARY | 2024-04-11 16:51 | External Medical Summary | Summary of Care ---
Author Name Unknown Organization [facility] Address [address] [place] [address] Phone [phone] Care Team Providers Care Follow Up Manager Name Role Phone Chrissy Martinez DO Primary Care Provider Reason for Visit * Reason Onset Date Comments Other 12/03/2023 Forms Encounter Details Date Type Department Care Team (Late st Contact Info) Description 12/03/2023 Telephone Family Practice [facility] 200 [facility] [place] [address] Chrissy Martinez DO [address] [place] [address] Other (Forms) Allergies Active Allergy Reactions Criticality [...] encounter Miscellaneous Notes * Telephone Encounter - Cehlsea Aldana LPN - 12/03/2023 2:07 PM EST [...] assessment paperwork to be completed. Placed in [facility]. Envelope attached to paperwork to send. documented in this encounter Plan of Treatment Upcoming Encounters Date Type Department Care Team (Late st Contact Info) Description 12/13/2023 2:30 PM EST Nutrition Services Nutrition, Bert Rodarte [address] [place] [address] Kristine Mcgarry RDN [address] [place] [address] 01/31/2024 2:40 PM EST Office Visit Family Practice [employer] 200 [facility] [place] [address] Chrissy Martinez DO 200 [facility] [place] [address] 03/25/2024 3:00 PM EDT Office Visit Gynecology/Obstetrics Therese Rodarte [address] [place] [address] Lynnette Bacon PA-C [address] [place] [address] 06/23/2024 2:20 PM EDT [place] [address] [address] [facility], [place] [address] Daysi Landeros PA-C [address] [place] [address] [place] [address] Health Maintenance Due Date Last Done Comments Hepatitis B (1 of 3 - 3-dose series) 1980 COVID-19 Vaccine ( - 2022- season) 2023 03/23/2021, 02/16/2021 Influenza [...] filedocumented as of this encounter Care Teams Follow Up Manager Relationship Specialty Start Date End Date Chrissy Martinez DO [address] [place] [address] PCP - General Family Medicine 09/10/19 documented as of this encounter
--- OUTSIDE RECORDS SUMMARY | 2024-04-11 16:51 | External Medical Summary | Summary of Care ---
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*; Screening for lipoid disorders; Prediabetes; Encounter for screening mammogram for breast cancer Allergies Active Allergy Reactions Criticality Noted Date Comments Acyclovir Rash Low 04/01/2015 documented as of this encounter (statuses as of 12/12/2023) Medications Medication Sig Dispensed Refills Start Date [...] as of this encounter (statuses as of 12/12/2023) Active Problems Problem Noted Date Diagnosed Date Prediabetes 12/12/2023 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 Overweight (BMI 25.0-29.9) 01/06/2018 Grief reaction 01/06/2018 documented as of this encounter (statuses as of 12/12/2023) Immunizations Name Administration Dates Next Due COVID-19 [...] Former Cigarettes 0.3 6 Smokeless Tobacco: Never Tobacco Cessation:Counseling Given: Not Answered Alcohol Use Standard Drinks/Week Comments Yes 0 [...] Sign Reading Time Taken Comments Blood Pressure 108/67 12/12/2023 1:57 PM EST Pulse 64 12/12/2023 1:57 PM EST Temperature 37 C (98.6 F) 12/12/2023 1:57 PM EST Respiratory Rate 16 12/12/2023 1:57 PM EST Oxygen Saturation - - Inhaled Oxygen Concentration - - Weight 78.5 kg (173 lb) 12/12/2023 1:57 PM EST Height - - Body Mass Index 29.7 08/02/2023 3:13 PM EDT documented in this encounter Progress Notes * Chrissy Martinez, - 12/12/2023 2:05 PM EST Subjective: Danii Hoang is a 43 year old female. Chief Complaint Patient presents with Forms Request HPI: Employed at [employer], recently got promotion and will be working more hours, full-time, was told she should fill out a form for being on life-sustaining medications so she can continue her insurance without any lapse. 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 Also has a history of anxiety and is on buspirone 5 mg twice daily. Last year tested prediabetic, she states diabetes runs strongly in her family and she met with a business improvement manager and lost 20 lb, she is cut out carbs and alcohol. She wants to try to prevent diabetes atall cost for as long as possible. 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 30 Tablet0 Levothyroxine Sodium 50 MCG Oral Tablet (Levoxyl) Take 1 Tablet by mouth in the morning. (at least 30 min prior to breakfast or other meds). 30 Tablet 11 Fluticasone Propionate 50 MCG/ACT Nasal Suspension (Flonase Allergy Relief) Administer 1-2 Sprays into nostril daily. Proventil HFA 108 (90 Base) MCG/ACT Inhalation Aerosol Solution Inhale by mouth 2 Puffs 4 times a day . 1 g 0 Culturelle Adult Ult Balance Oral Capsule Take by mouth . Cetirizine HCl 10 MG Oral Tablet Take by mouth 10 mg in the morning. Multiple Vitamins-Minerals (ONE-A-DAY VITACRAVES ADULT) CHEW Take by mouth. No facility-administered medications prior to visit. Last reviewed on 12/12/2023 2:02 PM by Merlene Lacey child life assistant of patient's allergies indicates: Allergen Reactions Acyclovir Rash Objective: BP 108/67 | Pulse 64 | Temp 37 C (98.6 F) | Resp 16 | Wt 78.5 kg (173 lb) | BMI 29.70 kg/m | BSA 1.88 m 08/21/2019 09/10/2019 03/22/2020 12/20/2020 BP AND WT. Systolic 122 120 118 112 Diastolic 78 78 76 78 Weight 171 lb 6.4 oz 172 lb 1.9 oz 178 lb 0.6 oz 174 lb 1.9 oz Height 64 in ! 65 in 65 in Pulse 76 64 74 69 Temperature 37.7 C (99.9 F) 37 C (98.6 F) 36.4 C (97.5 F) 37.3 C (99.2 F) 08/17/2021 01/25/2022 08/16/2022 08/29/2022 BP AND WT. Systolic 118 132 114 112 Diastolic 60 82 78 60 Weight 188 lb 186 lb 12.8 oz 187 lb 3.2 oz Height 65 in 65 in 64 in Pulse 69 74 77 62 Temperature 37.1 C (98.8 F) 36.7 C (98 F) 36.6 C (97.8 F) 37 C (98.6 F) 10/15/2022 01/29/2023 04/26/2023 08/02/2023 BP AND WT. Systolic 114 112 Diastolic 74 70 Weight 186 lb 12.8 oz 188 lb 1.3 oz 185 lb 11.2 oz 175 lb 3.2 oz Height 64 in 64 in 64 in Pulse 73 90 Temperature 36.5 C (97.7 F) 36.9 C (98.4 F) 12/12/2023 BP AND WT. Systolic 108 Diastolic 67 Weight 173 lb Height Pulse 64 Temperature 37 C (98.6 F) Physical Exam: General: alert, healthy, and no distress Head: Normocephalic, No masses, lesions, tenderness or abnormalities Neck: supple, no adenopathy, no bruits, thyroid normal size, non-tender, without nodularity Heart: regular rate & rhythm, no murmur, and no gallops Lungs: chest symmetric with normal AP diameter, no chest deformities noted, no chest wall tenderness, lungs clear to auscultation Pulses: carotid=2/4 w/o bruits Extremities: less than 2 second capillary refill, no joint deformities, effusion, or inflammation Latest Reference Range & Units 03/22/20 09:04 09/14/20 10:20 09/26/20 08:58 08/17/21 16:21 01/30/23 07:50 04/03/23 07:57 05/07/23 15:29 Triglycerides <=174 mg/dL 123 Cholesterol <200 mg/dL 222 (H) Non-HDL Cholesterol <=159 mg/dL 164 (H) HDL Cholesterol >49 mg/dL 58 LDL Cholesterol <=129 mg/dL 139 (H) Sodium 135 - 146 mmol/L 140 141 Potassium 3.5 - 5.1 mmol/L 5.1 5.0 Chloride 98 - 107 mmol/L 100 103 CO2 22 - 32 mmol/L 27 26 BUN 6 - 20 mg/dL 12 11 Creatinine 0.5 - 1.0 mg/dL 0.7 0.6 Estimated Glomerular Filtration Rate >=60 mL/min >60.0 >90 Anion Gap 7 - 15 mmol/L 13 12 Glucose 70 - 120 mg/dL 99 96 Calcium 8.4 - 10.2 mg/dL 10.0 9.4 Protein 6.0 - 8.3 g/dL 7.7 7.1 Estimated Average Glucose <126 mg/dL 120 Hemoglobin A1C 4.0 - 5.6 % 5.8 (H) TSH 0.27 - 4.20 uIU/mL 4.63 (H) 2.54 TSH WITH FREE T4 IF INDICATED Rpt ! Rpt T4, Free 0.9 - 1.7 ng/dL 1.0 Thyroglobulin Antibody <115.0 IU/mL 238.3 (H) Thyroid Peroxidase Antibody <34.0 IU/mL 221.8 (H) CBC WITH WBC DIFFERENTIAL Rpt WBC 4.00 - 10.80 K/uL 8.18 RBC 3.85 - 5.15 M/uL 4.75 HGB 12.0 - 15.3 g/dL 13.9 HCT 36.0 - 45.2 % 43.4 PLT 140 - 400 K/uL 376 Hepatitis C Antibody Negative Negative HEPATITIS C ANTIBODY Rpt CORONAVIRUS RESULT NEG NEGATIVE NEGATIVE SARS-CoV-2 (COVID-19) Result Negative Negative SARS-COV-2 (COVID-19), NAAT Rpt Rpt Rpt Albumin 3.8 - 5.0 g/dL 5.1 (H) 4.7 AST 10 - 35 U/L 19 14 ALT 10 - 35 U/L 22 15 Alkaline Phosphatase 35 - 130 U/L 56 61 Bilirubin, Total <=1.2 mg/dL 0.6 0.4 SURGICAL PATHOLOGY Rpt ASSESSMENT/PLAN: 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 (Primary) - TSH WITH FREE T4 IF INDICATED; Future; Expected date: 12/12/2023 Continue levothyroxine 50 mcg daily, adjust as needed, recheck annually Forms filled out for the [facility] of human Services, faxed, and scanned to chart supporting patient is employable and is on life sustaining medications Screening for lipoid disorders - LIPID PANEL WITH DIRECT LDL IF TG IS HIGH; Future; Expected date: 12/12/2023 Prediabetes - HEMOGLOBIN A1C; Future; Expected date: 12/12/2023 - COMPREHENSIVE METABOLIC PANEL; Future; Expected date: 12/12/2023 - PROTEIN/ CREATININE RATIO, URINE; Future; Expected date: 12/12/2023 Fasting sugar was a little high suggesting prediabetes or insulin resistance. This means you may develop diabetes in the next few years. You should do everything you can to prevent diabetes now including cutting out sugars, especially sugar sweetened beverages, watching carbs, switching to whole grains and eating 3-4 small servings daily. Exercising 30-60 minutes daily can help the insulin resistance a lot, and10% weight loss, if applicable can also help. Encounter for screening mammogram for breast cancer - MAMMOGRAM SCREENING BILATERAL; Future; Expected date: 12/13/2023 Patient will return soon for fasting labs, and then follow-up for routine physical in 1 year, with labs prior to visit 35 min spent with patient, reviewing history, performing physical exam, reviewing labs, studies, specialist OVNs, and reports, educating and coordinating care, discussing treatment, and compleing forms and note Chrissy Martinez DO * Merlene Lacey RN - 12/12/2023 2:00 PM EST Needs a form filled out that she takes thyroid medication. documented in this encounter Plan of Treatment Upcoming Encounters Date Type Department Care Team (Late st Contact Info) Description 12/23/2023 2:30 PM EST Nutrition Services Nutrition, [facility] [address] [place] [address] Kristine Mcgarry RDN [address] [place] [address] 01/31/2024 2:40 PM EST Office Visit Family Practice [facility] [address] [place] [address] Chrissy Martinez DO 200 [facility] [place] [address] 03/25/2024 3:00 PM EDT Office Visit Gynecology/Obstetrics [facility] [address] [place] [address] Lynnette Bacon PA-C [address] [place] [address] 06/23/2024 2:20 PM EDT [facility] [address] [place] [address], [place] [address] Daysi Landeros PA-C [address] [place] [address] [place] [address] 12/21/2024 2:00 PM EST Office Visit Family Practice [facility] [place] 200 [facility] [place] [address] Chrissy Martinez, DO [address] [place] [address] Scheduled Orders Name Type Priority Associated Diagnoses Orde r Schedule LIPID PANEL WITH DIRECT LDL IF TG IS HIGH Lab Routine Screening for lipoid disorders Expected: 12/12/2023, Expires: 12/12/2024 HEMOGLOBIN A1C Lab Routine Prediabetes Expected: 12/12/2023 (Approximate), Expires: 12/11/2024 COMPREHENSIVE METABOLIC PANEL Lab Routine Prediabetes Expected: 12/12/2023 (Approximate), Expires: 12/11/2024 TSH WITH FREE T4 IF INDICATED Lab Routine 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 Expected: 12/12/2023 (Approximate), Expires: 12/11/2024 PROTEIN/ CREATININE RATIO, URINE Lab Routine Prediabetes Expected: 12/12/2023 (Approximate), Expires: 12/11/2024 MAMMOGRAM SCREENING BILATERAL Medical Imaging Routine Encounter for screening mammogram for breast cancer Expected: 12/13/2023, Expires: 01/12/2025 Health Maintenance Due Date Last Done Comments Hepatitis B (1 of 3 - 3-dose series) 1980 COVID-19 Vaccine ( season) 2023 03/23/2021, 02/16/2021 Influenza Vaccine (FLU [...] as of this encounter Visit Diagnoses Diagnosis 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
--- OUTSIDE RECORDS SUMMARY | 2024-04-11 16:51 | External Medical Summary | Summary of Care ---
Author Name Unknown Organization [facility] Address [address] [place] [address] Phone [phone] Care Team Providers Care Forest Engineer Name Role Phone Chrissy Martinez DO Primary Care Provider Reason for Visit * Reason Onset Date Comments Other 12/03/2023 Forms Encounter Details Date Type Department Care Team (Late st Contact Info) Description 12/03/2023 Telephone Family Practice [facility] 200 [facility] [place] [address] Chrissy Martinez DO 200 [place] [address] Other (Forms) Allergies Active Allergy Reactions Criticality [...] Encounter - Sylvia Monzon OSA - 12/04/2023 2:30 PM EST Pt is scheduled for 12/12 * Telephone Encounter - Sylvia Monzon OSA [...] assessment paperwork to be completed. Placed in [facility]. Envelope attached to paperwork to send. documented in this encounter Plan of Treatment Upcoming Encounters Date Type Department Care Team (Late st Contact Info) Description 12/12/2023 1:40 PM EST Telemedicine Family [facility] [place] [address] [place] [address] Chrissy Martinez DO [address] [facility] [address] [place] [address] 12/13/2023 2:30 PM EST Nutrition Services Nutrition, [facility] 132 [facility] [place] [address] Kristine Mcgarry, RDN [address] [place] [address] 01/31/2024 2:40 PM EST Office Visit Family Practice [facility] [address] [place] [address] Chrissy Martinez, DO [address] [place] [address] 03/25/2024 3:00 PM EDT Office Visit Gynecology/Obstetrics [facility] [address] [place] [address] Lynnette Bacon PA-C [address] [place] [address] 06/23/2024 2:20 PM EDT Office Visit [address], [place] [address] Daysi Landeros PAWillem [address] [place] [address] [place] [address] Health Maintenance Due Date Last Done Comments Hepatitis B (1 of 3 - 3-dose series) 1980 COVID-19 Vaccine (2022- season) 2023 03/23/2021, 02/16/2021 Influenza Vaccine (FLU [...] filedocumented as of this encounter Care Teams Forest Engineer Relationship Specialty Start Date End Date Chrissy Martinez DO [address] [place] [address] PCP - General Family Medicine 09/10/19 documented as of this encounter
--- OUTSIDE RECORDS SUMMARY | 2024-04-11 16:51 | External Medical Summary ---
Author Name Unknown Address Unknown Organization K01:LABORATORY [facility] - [address] [place] [facility] [place] [address] Laboratory Report Ordering Provider Test Date Status ASHELY IRELAND 12/23/2023 08:00:06 Final Observation Date Value Abnormality Reference (Units ) Status BUN 12/23/2023 08:00:06 10 6-20 (mg/dL) Final Creatinine 12/23/2023 08:00:06 0.7 0.5-1.0 (mg/dL) Final Glomerular filtration rate/1.73 sq M.predicted [Volume Rate/Area] in Serum, Plasma or Blood by Creatinine-based formula (CKD-EPI) 12/23/2023 08:00:06 >90 >=60 (mL/min) Final eGFR is calculated based on the CKD-EPI 2020 equation SODIUM 12/23/2023 08:00:06 137 135-146 (m mol/L) Final Potassium 12/23/2023 08:00:06 5.2 Above high normal 3. 5-5.1 (mmol/L) Final Cl 12/23/2023 08:00:06 101 98-107 (mm ol/L) Final CO2 12/23/2023 08:00:06 27 22-32 (mmo l/L) Final Anion gap 12/23/2023 08:00:06 9 7-15 (mmol /L) Final Glucose 12/23/2023 08:00:06 101 70-120 (mg /dL) Final Albumin 12/23/2023 08:00:06 4.7 3.8-5.0 (g /dL) Final AST (Aspartate aminotransferase) 12/23/2023 08:00:06 16 10-35 (U/L) Fin al Alk Phos 12/23/2023 08:00:06 59 35-130 (U/ L) Final Bilirubin, Total 12/23/2023 08:00:06 0.5 <=1 .2 (mg/dL) Final Calcium 12/23/2023 08:00:06 9.4 8.4-10.2 ( mg/dL) Final Protein 12/23/2023 08:00:06 6.9 6.0-8.3 (g /dL) Final ALT (Alanine aminotransferase) 12/23/2023 08:00:06 16 10-35 (U/L) Babak locke Performing Location LAB[facility]ORY [facility] - [facility] [address]. [facility] [address]
--- OUTSIDE RECORDS SUMMARY | 2024-04-11 16:51 | External Medical Summary | Summary of Care ---
Author Name Unknown Organization [facility] Address [address] [place] [facility] [place] [address] Phone [phone] Care Team Providers Care Handicrafts Teacher Name Role Phone Beka Martinez DO Primary Care Provider Reason for Visit * Reason Comments eRx-Medication Refill Encounter Details Date Type Department Care Team (Late st Contact Info) Description 10/31/2023 Refill Family Practice [facility] 200 [facility] [place] [address] Beka Martinez DO 200 [facility] [place] [address] [place] (generalized anxiety disorder) Allergies Active Allergy Reactions Criticality Noted Date Comments Acyclovir Rash Low 04/01/2015 documented as of this encounter (statuses as of 10/31/2023) Medications Medication Sig Dispensed Refills Start Date [...] anxiety mid-day 90 Tablet 0 10/31/2023 Active busPIRone HCl 5 MG Oral Tablet (Buspar)Indicati ons:[place] (generalized anxiety disorder) One tablet by mouth twice a day, may take an additional tablet if needed for acute anxiety mid-day 90 Tablet 3 05/07/2023 3 Discontinued documented as of this encounter (statuses as of 10/31/2023) Active Problems Problem Noted Date Diagnosed Date Overweight (BMI 25.0-29.9) 01/06/2018 Grief reaction 01/06/2018 documented as of this encounter (statuses as of 10/31/2023) Immunizations Name Administration Dates Next Due COVID-19 mRNA, LNP-s, No Pre serve, 2-Dose Series (Moderna) 03/23/2021,02/16/2021 PPD 07/27/2019 SEASONAL INFLUENZA, PF, 6 M & Above, IM , (FLULAVAL or FLUZONE) 01/21/2021(Deferred: Patient Refused),09/10/2019 Seasonal Influenza, Split, I [...] encounter Miscellaneous Notes * Telephone Encounter - Beka Martinez DO - 10/31/2023 4:27 PM EST Signed Prescriptions: Disp Refills busPIRone HCl 5 MG Oral Tablet (Buspar) 90 Tab*0 Sig: TAKE 1 TABLET BY MOUTH TWICE DAILY, may take an additional tablet if needed for acute anxiety mid-day Authorizing Provider: BEKA MARTINEZ * Telephone Encounter - Daysi Garcia [facility] - 10/31/2023 3:03 PM ESTPending Prescriptions: Disp Refills busPIRone HCl 5 MG Oral Tablet [Pharmacy M*90 Tab*0 Sig: TAKE 1 TABLET BY MOUTH TWICE DAILY, may take an additional tablet if needed for acute anxiety mid-day * Telephone Encounter - Daysi Garcia [facility] - 10/31/2023 3:03 PM EST [facility] is currently not authorized to approve refills for the pended medication(s) per refill protocol. Please approve if appropriate. Thank you, Daysi Garcia, PharmD Clinical Pharmacist [facility] ([facility]) 10/31/23 3:03 PM [phone] documented in this encounter Plan of Treatment Upcoming Encounters Date Type Department Care Team (Late st Contact Info) Description 12/06/2023 2:00 PM EST Nutrition Services Nutrition, [facility] [address] [place] [address] Kristine Mcgarry, RDN [address] [place] [address] 01/31/2024 2:40 PM EST Office Visit Family Practice [facility] 200 [facility] [place] [address] Beka Martinez, 200 [facility] [place] [address] 03/25/2024 3:00 PM EDT Office Visit Gynecology/Obstetrics [facility] [address] [place] [address] Lynnette Bacon PA-C [address] [place] [address] 06/23/2024 2:20 PM EDT Office Visit Dermatology[address], [place] [id number] Daysi Landeros PA-C [address] [place] [address] [place] [address] Health Maintenance Due Date Last Done Comments Hepatitis B (1 of 3 - 3-dose series) 1980 COVID-19 Vaccine (3 - 2022- season) 2023 03/23/2021, 02/16/2021 Influenza Vaccine (FLU shot) (#1) 2023 09/10/2019, 09/28/2011 Depression Screening 01/29/2024 01/29/2023 Mammogram 02/02/2024 02/01/2023, 08/30/2020 TSH 04/03/2024 04/03/2023, 0312/2022, 01/13/2018 Diabetes Screening 01/30/2026 01/30/2023, 0 01/30/2023, [...] disorder documented in this encounter Care Teams Handicrafts Teacher Relationship Specialty Start Date End Date Beka Martinez DO [address] [place] [address] PCP - General Family Medicine 09/10/19 documented as of this encounter
--- OUTSIDE RECORDS SUMMARY | 2024-04-11 16:51 | External Medical Summary ---
Author Name Unknown Address Unknown Organization K01:[facility] [place] [address] [place] [address] Laboratory Report Ordering Provider Test Date Status ASHELY IRELAND 12/23/2023 08:00:06 Final Observation Date Value Abnormality Reference (Units ) Status HbA1C 12/23/2023 08:00:06 5.5 4.0-5.6 (% ) Final The use of HbA1c to monitor glycemic status is based on normal hemoglobin and HbA composition. This test should not be used in patients with abnormal hemoglobin that affects the half life of the red blood cell or the in vivo glycation rates. Glucose, estimated average 12/23/2023 08:00:06 111 <126 (mg/dL) Final Performing Location [facility] [place] [address] [facility] [address]
--- OUTSIDE RECORDS SUMMARY | 2024-04-11 16:51 | External Medical Summary | Summary of Care ---
Author Name Unknown Organization [facility] Address [address] [place] [address] Phone [phone] Care Team Providers Care Press Leader Name Role Phone Chrissy Martinez DO Primary Care Provider Reason for Visit * Reason Onset Date Comments Other 12/03/2023 Forms Encounter Details Date Type Department Care Team (Late st Contact Info) Description 12/03/2023 Telephone Family Practice [facility] [address] [place] [address] Chrissy Martinez DO [address] [place] [address] Other (Forms) Allergies Active Allergy Reactions Criticality [...] paperwork to be completed. Placed in [facility]. Envelope attached to paperwork to send. documented in this encounter Plan of Treatment Upcoming Encounters Date Type Department Care Team (Late st Contact Info) Description 12/13/2023 2:30 PM EST Nutrition Services Nutrition, [facility] [address] [place] [id number] Kristine Mcgarry RDN [address] [place] [address] 01/31/2024 2:40 PM EST Office Visit [facility] [address] [place] [address] [facility] [place] [address] Chrissy Martinez, DO [address] [place] [address] 03/25/2024 3:00 PM EDT Office Visit Gynecology/Obstetrics Therese Rodarte [address] [place] [address] Lynnette Bacon PA-C [address] [place] [address] 06/23/2024 2:20 PM EDT [facility] [address] [place] [address], [place] [address] Daysi Landeros PA-C [address] [place] [address] [place] [address] Health Maintenance Due Date Last Done Comments [...] filedocumented as of this encounter Care Teams Press Leader Relationship Specialty Start Date End Date Chrissy Martinez DO [address] [place] [address] PCP - General Family Medicine 09/10/19 documented as of this encounter
--- OUTSIDE RECORDS SUMMARY | 2024-04-11 16:51 | External Medical Summary | Summary of Care ---
Author Name Unknown Organization [facility] Address [address] [place] [address] Phone [phone] Care Team Providers Care Entry Examiner Name Role Phone Chrissy Martinez DO Primary Care Provider Reason for Visit * Reason Onset Date Comments Other 12/03/2023 Forms Encounter Details Date Type Department Care Team (Late st Contact Info) Description 12/03/2023 Telephone Family Practice [facility] [address] [facility] [place] [address] Chrissy Martinez DO [address] [place] [address] Other (Forms) Allergies Active Allergy Reactions Criticality [...] encounter Miscellaneous Notes * Telephone Encounter - Chelsea Aldana LPN [...] Nutrition, Bert Rodarte [address] [place] [address] Kristine Mcgarry RDN [address] [place] [address] 01/31/2024 2:40 PM EST Office Visit Family Practice [employer] [address] [facility] [place] [address] Chrissy Martinez DO [address] [facility] [place] [address] 03/25/2024 3:00 PM EDT Office Visit Gynecology/Obstetrics Therese Rodarte [address] [place] [address] Lynnette Bacon PA-C [address] [place] [address] 06/23/2024 2:20 PM EDT [place] [address] [facility], [place] [address] Daysi Landeros PA-C [address] [place] [address] [place] [address] Health Maintenance Due Date Last Done Comments [...] filedocumented as of this encounter Care Teams Entry Examiner Relationship Specialty Start Date End Date Chrissy Martinez DO [address] [place] [address] PCP - General Family Medicine 09/10/19 documented as of this encounter
[2024-04-11] MEDS: ONDANSETRON INJ 2 MG/ML 2 ML VIAL IV STA (17:23)
[2024-04-11] MEDS: MoRPHine SULFATE 4 MG/ML 1 ML CARP\\VIAL IV STA (17:24)
[2024-04-11] MEDS: KETOROLAC TROMETHAMINE 15 MG/ML VIAL IV STA (17:24)
[2024-04-11] MEDS: SODIUM CHLORIDE 0.9% 1,000 ML IV STA (17:25)
[2024-04-11 17:40] LABS: Basophils # (auto) 0.07 K/uL (0.00-0.20); Basophils % (auto) 0.4 %; Eosinophils # (auto) 0.06 K/uL (0.00-0.50); Eosinophils % (auto) 0.4 %; Hematocrit (blood only) 42.9 % (37.0-47.0); Hemoglobin 14.5 g/dl (12.0-16.0); Immature Granulocytes # (auto) 0.07 K/uL (0.01-0.20); Immature Granulocytes % (auto) 0.4 %; Lymphocytes # (auto) 2.79 K/uL (1.20-3.40); Lymphocytes % (auto) 16.5 %; Mean Corpuscular Hemoglobin 30.6 pg (25.0-34.0); Mean Corpuscular Hgb Conc 33.8 g/dL (32.0-36.0); Mean Corpuscular Volume 90.5 fL (80.0-100.0); Mean Platelet Volume 9.1 fL (9.4-12.4); Monocytes # (auto) 1.17 K/uL (0.11-0.59); Monocytes % (auto) 6.9 %; Neutrophils % (auto) 75.4 %; Platelet Count 363 K/uL (130-400); RDW Coefficient of Variation 12.4 % (11.5-14.5); RDW Standard Deviation 41.5 fL (36.4-46.3); Red Blood Count 4.74 M/uL (4.20-5.40); White Blood Count 16.86 K/ul (4.8-10.8)
[2024-04-11 17:49] LABS: Albumin Globulin Ratio 1.4 (0.9-2); Albumin Level 4.9 gm/dl (3.4-5.0); BUN Creatinine Ratio 11.8 (10-20); Calcium 9.8 mg/dl (8.6-10.3); Creatinine Clr Calc Pharmacy 104.5 ml/min; Est GFR (African American) 123.3 ml/min; Est GFR (Non-African American) 106.4 ml/min; Globulin 3.4 gm/dl (2.5-4.0); Potassium 3.5 mmol/L (3.5-5.1); Total Protein 8.3 gm/dl (6.0-8.3)
[2024-04-11 17:50] LABS: Appearance Urine Clear (Clear); Bilirubin Urine Negative (Negative); Blood Urine Negative (Negative); Color Urine Yellow; Glucose Urine UA Negative (Negative); Ketones Urine Trace (Negative); Leukocyte Esterase Urine Negative (Negative); Nitrite Urine Negative (Negative); Protein Urine Negative (Negative); Specific Gravity Urine 1.014 (1.000-1.030); Urobilinogen Urine Negative (Negative); pH Urine 6.5 (4.5-7.5)
[2024-04-11 17:51] LABS: Pregnancy Test, Serum Negative (Negative)
[2024-04-11] MEDS: OPTIRAY 320 100ml IV ONE (18:17)
--- NOTE | 2024-04-11 18:39 | CT Scan Report ---
CT abd pelvis IV con only CLINICAL HISTORY: RLQ TTP TECHNIQUE: Helical axial images of the abdomen and pelvis were obtained and displayed. Automated dose lowering techniques and/or adjustment according to patient size were utilized for this exam. This e xam was performed with intravenous contrast. CT DOSE: 1261.44 mGy.cm COMPARISON: None available at the time of this dictation. FINDINGS: Lower chest: No acute abnormality. Liver: Unremarkable. No focal lesions are seen. Gallbladder and biliary tree: No calcified gallstones. Normal caliber wall. No intra- or extrahepatic biliary ductal dilation. Pancreas: Unremarkable, no focal lesions. Spleen: Unremarkable. Adrenals: Unremarkable. Kidneys and ureters: Unremarkable. Bladder: Unremarkable. Reproductive organs: Uterus is not seen. There is a right ovary. Bowel: The appendix is dilated measuring 9 mm in diameter. No appendicolith is seen. Soft tissue stra nding is seen about the appendix. Lymph nodes Retroperitoneal: Unremarkable. Pelvic: Unremarkable. Mesenteric: Unremarkable. Peritoneum: Fat stranding is seen in the right lower quadrant about the appendix. No fluid collection or intraperitoneal gas. Vessels: Unremarkable. Abdominal wall: A fat-containing umbilical hernia is seen. Bones: Unremarkable. IMPRESSION: Findings are compatible with acute appendicitis without abscess or perforation. ACT 112: Negative or not required by law. Electronically signed by: Roberto Gillis M.D. 04/11/2024 6:36 PM
[2024-04-11] MEDS: cefOXitin 2,000 MG/60 ML BAG IV STA (19:07)
[2024-04-11] MEDS ORDERED: fentaNYL citrate PF 100 MCG/2 ML VIAL IV PRN (20:01)
[2024-04-11] MEDS ORDERED: PROMETHAZINE HCL 6.25 MG in SODIUM CHLORIDE 0.9% 50 ML IV PRN (20:01)
[2024-04-11] MEDS ORDERED: ONDANSETRON INJ 2 MG/ML 2 ML VIAL IV PRN ×2 (20:01→22:11)
[2024-04-11] MEDS ORDERED: ePHEDrine sulfate 50 MG/ML AMP IV PRN (20:01)
[2024-04-11] MEDS ORDERED: ATROPINE SULFATE 0.1 MG/ML 10ML SYR IV PRN (20:01)
[2024-04-11] MEDS ORDERED: MIDAZOLAM HCL 1 MG/ML 2ML VIAL ONE (20:02)
[2024-04-11] MEDS ORDERED: fentaNYL citrate PF 100 MCG/2 ML VIAL ONE (20:02)
[2024-04-11] MEDS ORDERED: ROCURONIUM BROMIDE 10 MG/ML 5 ML VIAL IV ONE (20:03)
[2024-04-11] MEDS ORDERED: SUCCINYLCHOLINE CHLORIDE 20 MG/ML 10 ML VIAL IV ONE (20:03)
[2024-04-11] MEDS ORDERED: PROPOFOL IV EMULSION 10 MG/ML 20 ML VIAL IV ONE (20:03)
[2024-04-11] MEDS ORDERED: LIDOCAINE 2% 2 ML VIAL/AMP(20MG/ML) INFIL ONE (20:03)
--- NOTE | 2024-04-11 20:12 | Anesthesiology Consultation ---
Date of Service April 11, 2024 Assessment & Plan Chart Review Chart Review: Acceptable Risk for Surgery and Patient NOT seen in Pre Admission Testing Consults Requested none ASA ASA2E Proposed Anesthesia Anesthesia Type: General Risk / Benefits Reviewed With: PT / POA / Parent / Guardian, Accepts Plan and Informed Consent Obtained History Surgery Operation Date: 04/11/24 20:00 Proposed Procedures p Laparoscopic Appendectomy - Ted Cunningham DO Height/Weight Height: 5 ft 3 in Weight: 78.2 kg Allergies Allergy/AdvReac Type Severity Reaction Status Date / Time acyclovir [From Zovirax] Allergy Rash Verified 04/11/24 19:23 Medications Home Medications Medication Instructions Recorded Confirmed Last Taken Lactobacillus rhamnosus GG 10 1 cap PO DAILY 04/11/24 04/11/24 Unknown billion cell capsule (Culturelle) acetaminophen 500 mg tablet 1,000 mg PO Q6H PRN Pain 04/11/24 04/11/24 Unknown (Tylenol Extra Strength) buspirone 5 mg tablet 5 mg PO BID 04/11/24 04/11/24 Unknown buspirone 5 mg tablet 5 mg PO DAILY PRN Anxiety 04/11/24 04/11/24 Unknown cetirizine 10 mg tablet (Zyrtec) 10 mg PO DAILY 04/11/24 04/11/24 Unknown levothyroxine 50 mcg tablet 50 mcg PO DAILY 04/11/24 04/11/24 Unknown lorazepam 0.5 mg tablet 0.5 mg PO DAILY PRN Anxiety 04/11/24 04/11/24 Unknown multivitamin 1 tab PO DAILY 04/11/24 04/11/24 Unknown Past Medical History Medical History No pertinent past medical history Exercise / Class Metabolic Activity II 4-5 Yardwork/Stairs/Walk up hill Past Surgical History Surgical History No pertinent past surgical history Past Anesthesia History No Hx of Anesthesia Complications and No Family Hx of Anesthesia Complications History of PONV No Hx of PONV and No Hx of Motion Sickness Social History Smoking Status: Never smoker Physical Exam Vital Signs Last Vital Signs Temp 36.6 C 04/11/24 16:44 Pulse 72 04/11/24 19:06 Resp 19 04/11/24 19:06 BP 159/82 H 04/11/24 19:06 Pulse Ox 95 04/11/24 19:06 O2 Del Method Room Air 04/11/24 17:16 ENMT Mouth: no dentition abnormality Thyromental Distance: > or= 3.5 Finger Breadths Mallampati Class: II Neck normal visual inspection Respiratory normal respiratory effort Auscultation: lungs clear to auscultation bilaterally Cardiovascular Rate/Rhythm: regular rate and regular rhythm Psychiatric Orientation: alert Testing Laboratory Results 04/11/24 17:14 04/11/24 17:14 Urine Color Yellow 04/11/24 Unknown Urine Appearance Clear (Clear) 04/11/24 Unknown Urine pH 6.5 (4.5-7.5) 04/11/24 Unknown Ur Specific [place] 1.014 (1.000-1.030) 04/11/24 Unknown Urine Protein Negative (Negative) 04/11/24 Unknown Urine Glucose (UA) Negative (Negative) 04/11/24 Unknown Urine Ketones Trace (Negative) H 04/11/24 Unknown Urine Nitrite Negative (Negative) 04/11/24 Unknown Ur Leukocyte Esterase Negative (Negative) 04/11/24 Unknown
--- NOTE | 2024-04-11 20:12 | History & Physical Report ---
Date of Service April 11, 2024 Assessment & Plan (1) Acute appendicitis: Plan: Her CT images and results were personally viewed and interpreted by myself Her exam and CT findings are consistent with acute appendicitis Will proceed to the operating room with a laparoscopic appendectomy, possible open Consent was obtained, risks discussed including bleeding, infection, leak, abscess History of Present Illness Chief Complaint: Abdominal pain Primary Care Provider: Chrissy Martinez DO This is a 44-year-old female who presents to the ER today with right lower quadrant abdominal pain sharp in nature since yesterday evening. No radiation of the pain. No worsening or relieving factors. She did have associated nausea without emesis. She denies any fevers but states she has had some chills. Only prior abdominal surgery was a laparoscopic hysterectomy in 2012. Allergies Allergy/AdvReac Type Severity Reaction Status Date / Time acyclovir [From Zovirax] Allergy Rash Verified 04/11/24 19:23 Home Medications Medication Instructions Recorded Confirmed Type Lactobacillus rhamnosus GG 10 1 cap PO DAILY 04/11/24 04/11/24 History billion cell capsule (Culturelle) acetaminophen 500 mg tablet 1,000 mg PO Q6H PRN Pain 04/11/24 04/11/24 History (Tylenol Extra Strength) buspirone 5 mg tablet 5 mg PO BID 04/11/24 04/11/24 History buspirone 5 mg tablet 5 mg PO DAILY PRN Anxiety 04/11/24 04/11/24 History cetirizine 10 mg tablet (Zyrtec) 10 mg PO DAILY 04/11/24 04/11/24 History levothyroxine 50 mcg tablet 50 mcg PO DAILY 04/11/24 04/11/24 History lorazepam 0.5 mg tablet 0.5 mg PO DAILY PRN Anxiety 04/11/24 04/11/24 History multivitamin 1 tab PO DAILY 04/11/24 04/11/24 History Past Med/Surg History Medical History No pertinent past medical history Surgical History No pertinent past surgical history Social History Smoking Status: Never smoker Preferred Language: Nepali Feels Safe at Home: Yes Review of Systems Constitutional: + chills; no fever Eyes: no blind spots and no worsening vision Ear, Nose, Mouth, Throat: no ear pain and no hearing loss Respiratory: no cough and no dyspnea Cardiovascular: no chest pain and no dyspnea on exertion Gastrointestinal: + abdominal pain and + nausea; no vomiti ng Genitourinary: no dysuria Musculoskeletal: no back pain and no neck pain Integumentary: no acne, no lesions and no sores Neurologic: no headache(s) and no memory loss Psychiatric: no behavioral changes and no depression Hematologic / Lymphatic: no easy bleeding and no easy bruising Physical Exam Constitutional: WD/WN, vitals as above Eyes: PERRL, conjunctivae normal, anicteric sclerae ENMT: external ear and nose normal, oropharynx normal Neck: trachea midline, no thyromegaly Respiratory: normal respiratory effort, lungs clear to auscultation Cardiovascular: RRR, no murmur, no edema Gastrointestinal (Abdomen): Inspection/Auscultation: abdomen normal to i nspection; abdomen not distended Percussion/Palpation: + abdomen tender (RLQ), + guarding and abdomen soft; no hernia Musculoskeletal: no cyanosis or clubbing, extremities motor strength 5/5 Skin: no rashes, warm and dry Neurologic: PERRL, EOMI, accommodation nl, no face palsy, no dysarthria Psychiatric: A+Ox3, euthymic affect Results & Data Results & Data Vital Signs (Past 12 Hours) Vital Signs Temp Pulse Pulse Resp BP BP Pulse Ox 04/11/24 19:06 72 19 159/82 H 95 04/11/24 17:16 100 04/11/24 17:04 79 04/11/24 16:44 18 04/11/24 16:44 36.6 C 82 18 163/70 H 98 O2 Del Method 04/11/24 19:06 04/11/24 17:16 Room Air 04/11/24 17:04 04/11/24 16:44 04/11/24 16:44 PG Care Time/CCT Total # of Minutes Spent Total Time Spent with Patient: Total time spent is greater than 50% in coordination of care (as documented) at patient's floor/unit and/or counseling patient: Coding Level of Care Code 66177 INT INP/OBS CARE 3/75MIN Diagnoses Acute appendicitis K35.80
[2024-04-11] MEDS ORDERED: HYDROmorphone INJ 2 MG/ML SYR/VIAL ONE (20:43)
[2024-04-11] MEDS ORDERED: SUGAMMADEX SODIUM 200 MG/2 ML VIAL IV ONE (20:46)
[2024-04-11] MEDS: BUPIVACAINE/EPINEPHRINE 0.25% 1:200,000 30 ML VIAL ONE (21:12)
--- NOTE | 2024-04-11 21:19 | Post Operative Brief Note ---
PG Immediate Post Op with CF Date of Surgery April 11, 2024 Pre & Post Diagnosis Operation Date: 04/11/24 20:00 Pre-Op Diagnosis: Acute appendicitis Post-Op Diagnosis: Acute appendicitis without perforation I identified the patient and participated in the time-out.: Yes Procedure Operation Date: 04/11/24 20:00 Actual Procedures p Laparoscopic Appendectomy(Not Applicable) - Ted Cunningham DO Surgeon Ted Cunningham DO Help Desk Support none Estimated Blood Loss 25 Findings Consistent with Post-Op Diagnosis Specimens Specimen Description: A. Appendix Drains Hauser Catheter (16Fr. hauser catheter inserted by Susan Freeman RN without difficulty. Draining clear yellow urine. Anesthesia to monitor urine output. Hauser catheter removed at end of case. ) Anesthesia Type General Complications none Disposition Disposition: Recovery Room
--- NOTE | 2024-04-11 21:21 | Operative Report ---
PG Post Operative Report Pre & Post Diagnosis Operation Date: 04/11/24 20:00 Pre-Op Diagnosis: Acute appendicitis Post-Op Diagnosis: Acute appendicitis without perforation I identified the patient and participated in the time-out.: Yes Procedure Operation Date: 04/11/24 20:00 Actual Procedures p Laparoscopic Appendectomy(Not Applicable) - Ted Cunningham DO Surgeon Ted Cunningham DO Blanket Cutting Machine Operator none Estimated Blood Loss 25 Findings Consistent with Post-Op Diagnosis Specimens Appendix to pathology Drains none Anesthesia Type General Complications none Disposition Disposition: Recovery Room Indications 44-year-old female with acute appendicitis Description of Procedure The patient was brought to the OR and placed in the supine position and SCD's placed. At this time she underwent general endotracheal anesthesia without incident. At this time a Rand catheter was placed under sterile conditions. Her abdomen was prepped and draped in the usual sterile fashion. She was given appropriate pre-operative antibiotics. A timeout was called, the procedure was verified as Laparoscopic appendectomy, possible open. Surgical, anesthesia and nursing teams agreed and the procedure was begun. After injection of 0.25% Marcaine with epinephrine, a supraumbilical incision was made using a #11 blade scalpel and carried down to the fascia with a hemostat. The abdomen was then elevated with towel clamps and entered using the Veress needle confirming position using the saline drop test. Pneumoperitoneum was established and 5mm trocar was placed. Laparoscope was introduced. No injury was seen from our entrance to the abdomen. At this time a 5mm suprapubic port and 12mm LLQ port were placed under direct visualization. The patient was placed in Trendelenburg and rotated to the left. At this time the appendix was visualized and the tip was freed and elevated toward the abdominal wall. The appendix appeared infla med, dilated and edematous. A window was created in the mesoappendix at the base of the appendix. A 45mm wright load stapler was then fired across the base of the appendix which appeared healthy. The mesoappendix was then taken using Harmonic device. A clip was placed on the appendiceal artery. The appendix was then placed in an Endocatch bag and removed through the LLQ port site. Staple line was inspected and was intact. 5mL Floseal hemostatic agent was placed at the mesoappendix. Hemostasis was complete. The 12 mm port was then closed at the fascial level using a 0 Vicryl suture using the suture passer. All ports were removed under direct visualization and no bleeding was noted. The abdomen was desufflated and the skin was closed using 4-0 Monocryl in a subcuticular fashion. Sterile dressings were applied. Rand catheter was removed. The patient was then awakened from anesthesia having remained stable throughout the entire case and transported to PACU. All needle and sponge counts were correct x 2. I attest to the content of the Intraoperative Record and any orders documented therein. Any exceptions are noted below.
[2024-04-11] MEDS: FLOSEAL HEMOSTATIC MATRIX 5ML TOP ONE (21:31)
--- NOTE | 2024-04-11 21:50 | Anesthesiology Progress Note ---
Date of Service April 11, 2024 Anesthesia Post Procedure Vital Signs Vital Signs: Temp Pulse Pulse Resp BP BP Pulse Ox 04/11/24 21:45 62 16 114/71 98 04/11/24 21:35 64 12 112/69 100 04/11/24 21:24 36.3 C L 67 14 122/72 100 04/11/24 19:06 72 19 159/82 H 95 04/11/24 17:16 100 04/11/24 17:04 79 04/11/24 16:44 18 04/11/24 16:44 36.6 C 82 18 163/70 H 98 O2 Del Method O2 Flow Rate 04/11/24 21:45 Nasal Cannula 2 04/11/24 21:35 Oxymask 3 04/11/24 21:24 Oxymask 6 04/11/24 19:06 04/11/24 17:16 Room Air 04/11/24 17:04 04/11/24 16:44 04/11/24 16:44 Transfer of Care Handoff Completed per policy Notes Mental Status: alert / awake / arousable Patient Amnestic to Procedure: Yes Nausea / Vomiting: adequately controlled Pain: adequately controlled Airway Patency, RR, SpO2: stable & adequate BP & HR: stable & adequate Hydration State: stable & adequate Anesthetic Complications: no major complications apparent
[2024-04-11] MEDS ORDERED: MoRPHine SULFATE 2 MG/ML CARP IV PRN (22:11)
[2024-04-11] MEDS ORDERED: MoRPHine SULFATE 4 MG/ML 1 ML CARP\\VIAL IV PRN (22:11)
[2024-04-11] MEDS ORDERED: oxyCODONE HCL IR 5 MG TAB (IMMEDIATE RELEASE) PO PRN ×2 (22:11)
[2024-04-11] MEDS: LACTATED RINGER'S 1,000 ML IV SCH (22:43)
[2024-04-12] MEDS: ACETAMINOPHEN 325 MG TAB PO PRN (01:55)
[2024-04-12] MEDS: LEVOTHYROXINE SODIUM 50 MCG TABLET PO SCH (06:04)
[2024-04-12] MEDS: IBUPROFEN 600 MG TAB PO PRN (06:18)
[2024-04-12 06:55] LABS: Basophils # (auto) 0.03 K/uL (0.00-0.20); Basophils % (auto) 0.3 %; Hematocrit (blood only) 37.2 % (37.0-47.0); Hemoglobin 12.4 g/dl (12.0-16.0); Immature Granulocytes # (auto) 0.04 K/uL (0.01-0.20); Immature Granulocytes % (auto) 0.3 %; Lymphocytes # (auto) 1.35 K/uL (1.20-3.40); Lymphocytes % (auto) 11.5 %; Mean Corpuscular Hemoglobin 30.6 pg (25.0-34.0); Mean Corpuscular Hgb Conc 33.3 g/dL (32.0-36.0); Mean Corpuscular Volume 91.9 fL (80.0-100.0); Mean Platelet Volume 9.1 fL (9.4-12.4); Monocytes # (auto) 0.58 K/uL (0.11-0.59); Monocytes % (auto) 4.9 %; Neutrophils # (auto) 9.74 K/uL (1.40-6.50); Platelet Count 281 K/uL (130-400); RDW Coefficient of Variation 12.5 % (11.5-14.5); RDW Standard Deviation 42.2 fL (36.4-46.3); Red Blood Count 4.05 M/uL (4.20-5.40); White Blood Count 11.74 K/ul (4.8-10.8)
[2024-04-12] MEDS: busPIRone 5 MG TAB PO SCH (08:06)
[2024-04-12] MEDS: CETIRIZINE HCL 10 MG TABLET PO SCH (08:07)
--- NOTE | 2024-04-12 08:41 | Surgery Progress Note ---
Date of Service April 12, 2024 Assessment & Plan (1) S/P laparoscopic appendectomy: Plan: POD #1- s/p Lap Appy Danii is doing well. her pain is controlled with PRN Tylenol. WBC trending down this AM at 11.74 Hgb and Hct stable. Afebrile She is passing flatus and reports that she is ambulating on her own to bathroom. She is ok for discharge to home today. Discharge instructions reviewed. Return precautions reviewed. Patient seen and examined with Dr. Cunningham. Admission and Anticipated Discharge Date Admission Date: April 11, 2024 Supervising Physician Co-Signing Physician Notes Her labs were reviewed She is been tolerating clear liquids, can advance her diet Her pain is controlled and her vitals look good She can be discharged later this morning with me in 2 weeks Subjective Danii is resting in bed, eating breakfast. She reports that she is doing well. She admits to some abdominal incision pain that is controlled with PRN Tylenol. She denies nausea or vomiting. She feels that she is ready for discharge. Review of Systems Constitutional: as per Subjective / HPI; no fever and no chills Respiratory: no cough, no dyspnea and no wheezing Cardiovascular: no chest pain, no chest pain at rest, no chest pain with activity, no radiating jaw, neck or arm pain, no dyspnea, no dyspnea at rest, no dyspnea on exertion, no lightheadedness and no calf pain Gastrointestinal: + abdominal pain (expected at abdominal incisions); no nausea and no vomiting Physical Exam Constitutional: WD/WN, vitals as above Respiratory: normal respiratory effort; no respiratory distress and no labored breathing Gastrointestinal (Abdomen): Inspection/Auscultation: + abdominal surgical incision (abdominal incisions are clean, dry, intact and well-approximated.) Results & Data Vital Signs (Past 12 Hours) Vital Signs Temp Pulse Pulse Resp BP BP Pulse Ox 04/12/24 07:16 36.7 C 76 17 145/90 H 99 04/12/24 01:40 36.6 C 75 16 97/60 L 96 04/12/24 00:29 36.7 C 70 16 100/63 98 04/11/24 23:14 36.3 C L 60 16 95/60 L 97 04/11/24 22:39 36.5 C 60 16 108/71 97 04/11/24 22:10 36.5 C 58 L 16 110/71 93 04/11/24 21:55 36.5 C 60 20 127/70 95 04/11/24 21:45 62 16 114/71 98 04/11/24 21:35 64 12 112/69 100 04/11/24 21:24 36.3 C L 67 14 122/72 100 O2 Del Method O2 Flow Rate 04/12/24 07:16 Room Air 04/12/24 01:40 Room Air 04/12/24 00:29 Room Air 04/11/24 23:14 Room Air 04/11/24 22:39 Room Air 04/11/24 22:10 Room Air 04/11/24 21:55 Room Air 04/11/24 21:45 Nasal Cannula 2 04/11/24 21:35 Oxymask 3 04/11/24 21:24 Oxymask 6 PG Care Time/CCT Total # of Minutes Spent Total Time Spent with Patient: Total time spent is greater than 50% in coordination of care (as documented) at patient's floor/unit and/or counseling patient: Coding Level of Care Code 49193 Post Operative Follow-Up Diagnoses S/P laparoscopic appendectomy Z90.49
--- NOTE | 2024-04-15 14:48 | Discharge Summary ---
Date of Service April 12, 2024 Admission HPI Per Admitting Provider This is a 44-year-old female who presents to the ER today with right lower quadrant abdominal pain sharp in nature since yesterday evening. No radiation of the pain. No worsening or relieving factors. She did have associated nausea without emesis. She denies any fevers but states she has had some chills. Only prior abdominal surgery was a laparoscopic hysterectomy in 2012. Principal Diagnosis acute appendicitis Discharge Exam Constitutional: WD/WN, vitals as above Respiratory: normal respiratory effort; no respiratory distress and no labored breathing Gastrointestinal (Abdomen): Inspection/Auscultation: + abdominal surgical incision (abdominal incisions are clean, dry, intact and well-approximated.) Discharge Data Allergies Allergy/AdvReac Type Severity Reaction Status Date / Time acyclovir [From Zovirax] Allergy Rash Verified 04/11/24 19:23 Consultations 04/11/24 19:00 ED Decision to Admit Stat Procedures Performed Operation Date: 04/11/24 20:00 Actual Procedures p Laparoscopic Appendectomy(Not Applicable) - Ted Cunningham DO Ordered Studies 04/11/24 17:01 CT abd pelvis IV con only Stat Hospital Course (1) S/P laparoscopic appendectomy: This is a 44 yo female who presented to the [facility] ED on 04/11/24 with abdominal pain. Workup in the ED showed a WBC of and a CT a/p concerning for acute appendicitis. The patient was tender to palpation in the RLQ. Patient made NPO with IVF and booked for the OR. On 04/11/24 the patient went to the OR with Dr. Cunningham for a laparoscopic appendectomy. The patient tolerated the procedure well, see operative report for full details. Post operatively the patient's diet was advanced, pain managed on prn meds, and incisions clean/dry/intact. On POD#1 04/12/24 the patient was deemed stable for discharge to home.She understood discharge instructions, follow up instructions, and return precautions. (2) Acute appendicitis: Total Time Total Time Spent Total Time Spent (In Minutes): 15 Discharge Plan Discharge Items Patient Disposition: Home - Self-Care Reason For Visit: ACUTE APPENDICITIS Discharge Diagnosis: Acute Appendicitis Activity: As commented below Lifting: No more than 10 pounds Bathing Comment: May shower today. No soaking or scrubbing your incisions. Driving/Machine Use: when no longer using pain medication. Non-emergency contact: Surgeon Call non-emergency contact if: you have any medication questions, your pain is not controlled, your temperature is above 101.5, your wound has increased redness and your wound has increased drainage Follow-up/Referrals: Ted Cunningham DO [Physician] - (Please call the office on Saturday, 04/13, to schedule a follow-up with Dr. Cunningham. ) Chrissy Martinez, [Primary Care Provider] - Diet: Regular Addtl Attending Provider Instructions: You are able to shower when you go home. No scrubbing or soaking incisions. You are able to take Tylenol as needed for pain control. Please follow twister tender's dosing instructions. You are able to take Ibuprofen as needed for pain control. Please follow twister tender's dosing instructions. Pending Studies at Discharge: Yes Studies:: Pathology report. Stand-Alone Forms: [employer], Pain - Opioid Pain Management, Smoking Cessation Medications and DC Order Prescriptions: Continued multivitamin Tablet 1 tab PO DAILY buspirone 5 mg tablet 5 mg PO BID buspirone 5 mg tablet 5 mg PO DAILY PRN (Reason: Anxiety) cetirizine [Zyrtec] 10 mg Tablet 10 mg PO DAILY acetaminophen [Tylenol Extra Strength] 500 mg Tablet 1,000 mg PO Q6H PRN (Reason: Pain) lorazepam 0.5 mg tablet 0.5 mg PO DAILY PRN (Reason: Anxiety) levothyroxine 50 mcg tablet 50 mcg PO DAILY Culturelle 10 billion cell Capsule 1 cap PO DAILY Discharge Orders: Discharge Order (Routine); Ordered 04/12/24 Ordered By: Daly Nichols/Other Patient Handouts: Appendectomy Admission Data Admit Date/Time: 04/11/24 21:29 Attending Provider: Ted Cunningham Admit Provider: Ted Cunningham Primary Care Provider: Chrissy Martinez Other Providers: Ted Cunningham Other Interventions: Discharge Summary Assessment (RN) Last Done: 04/12/24 09:53 Supervising Physician Co-Signing Physician Notes Her labs were reviewed She is been tolerating clear liquids, can advance her diet Her pain is controlled and her vitals look good She can be discharged later this morning with me in 2 weeks Coding Level of Care Code 71436 IN/OBS DISCH 30 MIN/LESS Diagnoses S/P laparoscopic appendectomy Z90.49 Acute appendicitis K35.890 Acute appendicitis type: other
== END 2024-04-12 11:26 | disposition home or self-care (01) ==
LOC: ED 16:43 → 3N 20:05 → OR 20:05
DX: Z88.8 Allergy status to other drugs, medicaments and biological substances; Z79.899 Other long term (current) drug therapy; Z79.890 Hormone replacement therapy; K35.80 Unspecified acute appendicitis